=== PATIENT | male | born 1950 | race Caucasian/White ===

== ENCOUNTER → 2024-04-14 | Outpatient (CLI) | payer MEDICARE, BC, SELFPAY ==
[2024-04-14 12:32] LABS: Collection Type, Urine Clean Catch
[2024-04-14 13:04] LABS: Basophils # (Auto) 0.1 Thou/mm3 (0.0-0.2); Basophils % (Auto) 1 % (0-2.5); Eosinophils # (Auto) 0.2 Thou/mm3 (0.0-0.5); Eosinophils % (Auto) 3 % (0-10); Hemoglobin 11.7 g/dL (13.5-16.0); Immature Granulocytes % (Auto) 0 % (0-0); Immature Granulocytes Auto 0.01 Thou/mm3 (0.00-0.00); Lymphocytes # (Auto) 1.9 Thou/mm3 (1.0-4.8); Lymphocytes % (Auto) 28 % (10-50); Mean Corpuscular HGB Conc 30.8 g/dl (31.0-37.0); Mean Corpuscular Hemoglobin 25.7 pg (25.0-35.0); Mean Corpuscular Volume 83 fL (80-100); Monocytes # (Auto) 0.6 Thou/mm3 (0.0-0.8); Monocytes % (Auto) 8 % (0-12); Neutrophils % (Auto) 59 % (37-80); Nucleated Red Blood Cell % 0 /100 WBC (0); Platelet Count 237 Thou/mm3 (140-440); RDW Standard Deviation 50.5 fL (35.1-43.9); Red Blood Count 4.56 Miln/mm3 (4.50-5.90); White Blood Count 6.8 Thou/mm3 (3.8-10.6)
[2024-04-14 13:10] LABS: Bilirubin,Urine Negative (Negative); Blood,Urine Negative (Negative); Clarity,Urine Clear (Clear/Hazy); Color,Urine Yellow (Lt Yel-Yel); Culture Indicated,Urine Not Indicated; Glucose, Urine Negative (Negative); Ketones,Urine Negative (Negative); Leukocyte Esterase,Urine Negative (Negative); Nitrite,Urine Negative (Negative); PH,Urine 5.5 (5.0-7.0); Protein,Urine Trace (Neg - Trace); RBC,Urine 2 /hpf (0-3); Specific Gravity,Urine 1.022 (1.001-1.035); Squamous Epithelial Cell,Urine < 1 /hpf (0-5); Urobilinogen,Urine Negative mg/dL (0.0-1.0); WBC,Urine 2 /hpf (0-5)
[2024-04-14 13:13] LABS: Alanine Aminotransferase 13 U/L (10-49); Albumin, Serum 4.7 gm/dL (3.4-4.8); Albumin/Globulin Ratio 1.8 (1.2-2.2); Alkaline Phosphatase 111 U/L (46-116); Anion Gap 9 (7-16); Aspartate Amino Transferase 11 U/L (0-34); BUN/Creatinine Ratio 16 Ratio (12-20); Bilirubin,Total 0.4 mg/dL (0.3-1.2); Blood Urea Nitrogen 23 mg/dL (9-23); Calcium 9.7 mg/dL (8.3-10.6); Calcium (Corrected) 9.7 mg/dL (8.5-10.1); Carbon Dioxide 26.5 mMol/L (20.0-31.0); Chloride 105 mMol/L (98-107); Creatinine (Component) 1.4 mg/dL (0.6-1.3); Globulin 2.6 gm/dL (2.3-3.5); Glucose 104 mg/dL (74-106); Osmolality,Calculated 283 (275-295); Sodium 140 mMol/L (136-145); Total Protein 7.3 gm/dL (5.7-8.2); eGFR 53 See Note
[2024-04-14 13:21] LABS: Ferritin 9 ng/mL (10.5-307.3)
[2024-04-14 13:31] LABS: Iron 41 mcg/dL (65-175)
[2024-04-14 13:42] LABS: Path Review Blood Smear Sent to Pathologist
== END | disposition home or self-care (01) ==
PROVIDERS: PCP Physician Assistant; Referring Provider Physician Assistant; Visit Provider Physician Assistant
DX: D64.9 Anemia, unspecified (principal)
CPT/HCPCS: 36415; 80053; 81001; 82306; 82728; 83540; 84153; 85025

== ENCOUNTER → 2024-05-26 | Outpatient (CLI) | payer MEDICARE, BC, SELFPAY | END | disposition home or self-care (01) | LOC: SCTO 09:57 | PROVIDERS: PCP Physician Assistant; Referring Provider Radiology Therapeutic Radiology; Visit Provider Radiology Therapeutic Radiology | DX: C61 Malignant neoplasm of prostate (principal) | CPT/HCPCS: 36415; 84153 ==

== ENCOUNTER 2024-06-03 14:08 | Outpatient (RCR) | payer MEDICARE, BC, SELFPAY ==
--- NOTE | 2024-06-03 15:50 | CTCFLWUP_ITS ---
[facility] [address] [place], [place] [address] FOLLOW-UP NOTE Date: 06/03/2024 MR#: [id number] Name: SORAYA CROCKETT : 1950 Dx: C61 Malignant neoplasm of prostate Identification. Patient with history of prostate CA [place] score 6 (3+3) radiation therapy completed 07/01/2009. Patient's PSA has been noted to go up steadily from 1.31 on 03/29/2022 to 1.98 on 03/28/2023 CT scan 05/01/2023 abdomen pelvis showed tiny 2 to 3 mm left lateral periodic lymph nodes Negative for prostamegaly or osteoblastic met disease. Bone scan 05/15/2023 no suggestive of bone mets either. PSA has increased slightly to 2.40 on 05/26/2024. Spoke with patient about the steady rise in PSA and is comfortable as I am just observing it and will repeat PSA in 6 months Electronically signed by: Raphael Morales M.D. 06/03/2024 3:47 PM
== END 2024-06-22 23:59 | disposition home or self-care (01) ==
LOC: SCTC 14:08
PROVIDERS: PCP Physician Assistant; Referring Provider Physician Assistant; Visit Provider Radiology Therapeutic Radiology
DX: C61 Malignant neoplasm of prostate (principal); R97.21 Rising PSA following treatment for malignant neoplasm of prostate; Z92.3 Personal history of irradiation
CPT/HCPCS: 99213; G0463

== ENCOUNTER → 2024-06-04 | Outpatient (CLI) | payer MEDICARE, BC, SELFPAY ==
[2024-06-04 11:46] LABS: Basophils # (Auto) 0.1 Thou/mm3 (0.0-0.2); Basophils % (Auto) 1 % (0-2.5); Eosinophils # (Auto) 0.3 Thou/mm3 (0.0-0.5); Eosinophils % (Auto) 4 % (0-10); Hematocrit 39.7 % (41.0-53.0); Hemoglobin 11.8 g/dL (13.5-16.0); Immature Granulocytes % (Auto) 0 % (0-0); Immature Granulocytes Auto 0.01 Thou/mm3 (0.00-0.00); Lymphocytes % (Auto) 26 % (10-50); Mean Corpuscular HGB Conc 29.7 g/dl (31.0-37.0); Mean Corpuscular Hemoglobin 26.3 pg (25.0-35.0); Mean Corpuscular Volume 89 fL (80-100); Monocytes # (Auto) 0.7 Thou/mm3 (0.0-0.8); Monocytes % (Auto) 8 % (0-12); Neutrophils # (Auto) 4.7 Thou/mm3 (1.8-7.7); Neutrophils % (Auto) 60 % (37-80); Nucleated Red Blood Cell % 0 /100 WBC (0); Platelet Count 234 Thou/mm3 (140-440); RDW Standard Deviation 53.8 fL (35.1-43.9); Red Blood Count 4.48 Miln/mm3 (4.50-5.90); White Blood Count 7.9 Thou/mm3 (3.8-10.6)
[2024-06-04 12:13] LABS: Alanine Aminotransferase 13 U/L (10-49); Albumin, Serum 4.3 gm/dL (3.4-4.8); Albumin/Globulin Ratio 1.5 (1.2-2.2); Alkaline Phosphatase 121 U/L (46-116); Anion Gap 8 (7-16); Aspartate Amino Transferase 17 U/L (0-34); BUN/Creatinine Ratio 14 Ratio (12-20); Bilirubin,Total 0.4 mg/dL (0.3-1.2); Blood Urea Nitrogen 21 mg/dL (9-23); Calcium 9.7 mg/dL (8.3-10.6); Calcium (Corrected) 9.7 mg/dL (8.5-10.1); Carbon Dioxide 27.8 mMol/L (20.0-31.0); Chloride 106 mMol/L (98-107); Creatinine (Component) 1.5 mg/dL (0.6-1.3); Globulin 2.8 gm/dL (2.3-3.5); Glucose 102 mg/dL (74-106); Osmolality,Calculated 286 (275-295); Potassium 5.5 mMol/L (3.4-5.1); Sodium 142 mMol/L (136-145); Total Protein 7.1 gm/dL (5.7-8.2); eGFR 49 See Note
[2024-06-04 14:47] LABS: Glucose Estimated Average 114 mg/dL (80-131); Hemoglobin A1C 5.6 % Hgb (4.8-6.0)
[2024-06-04 15:23] LABS: Ferritin 14 ng/mL (10.5-307.3); Iron 26 mcg/dL (65-175)
[2024-06-04 15:26] LABS: Cholesterol 206 mg/dL (132-200); HDL Cholesterol 52 mg/dL (40-60); LDL Cholesterol,Calculated 116 mg/dL (0-130); Triglycerides 191 mg/dL (30-150)
[2024-06-04 15:59] LABS: Vitamin B12 534 pg/mL (211-911)
== END | disposition home or self-care (01) ==
LOC: COPL 10:31
PROVIDERS: PCP Physician Assistant; Referring Provider Physician Assistant; Visit Provider Physician Assistant
DX: I10 Essential (primary) hypertension (principal); D51.9 Vitamin B12 deficiency anemia, unspecified; E11.9 Type 2 diabetes mellitus without complications; D50.9 Iron deficiency anemia, unspecified; E78.5 Hyperlipidemia, unspecified
CPT/HCPCS: 36415; 80053; 80061; 82607; 82728; 83036; 83540; 85025

== ENCOUNTER → 2024-06-15 | Outpatient (CLI) | payer MEDICARE, BC, SELFPAY ==
[2024-06-15 15:00] LABS: Alanine Aminotransferase 13 U/L (10-49); Albumin/Globulin Ratio 1.7 (1.2-2.2); Alkaline Phosphatase 101 U/L (46-116); Anion Gap 9 (7-16); Aspartate Amino Transferase 15 U/L (0-34); BUN/Creatinine Ratio 17 Ratio (12-20); Bilirubin,Total 0.2 mg/dL (0.3-1.2); Blood Urea Nitrogen 24 mg/dL (9-23); Calcium 9.4 mg/dL (8.3-10.6); Calcium (Corrected) 9.4 mg/dL (8.5-10.1); Chloride 107 mMol/L (98-107); Creatinine (Component) 1.4 mg/dL (0.6-1.3); Globulin 2.4 gm/dL (2.3-3.5); Glucose 120 mg/dL (74-106); Osmolality,Calculated 288 (275-295); Potassium 4.9 mMol/L (3.4-5.1); Sodium 142 mMol/L (136-145); Total Protein 6.4 gm/dL (5.7-8.2); eGFR 53 See Note
== END | disposition home or self-care (01) ==
LOC: COPL 13:27
PROVIDERS: PCP Physician Assistant; Referring Provider Physician Assistant; Visit Provider Physician Assistant
DX: E87.5 Hyperkalemia (principal)
CPT/HCPCS: 36415; 80053

== ENCOUNTER → 2024-09-09 | Outpatient (CLI) | payer MEDICARE, BC, SELFPAY ==
[2024-09-09 09:42] LABS: Basophils # (Auto) 0.1 Thou/mm3 (0.0-0.2); Basophils % (Auto) 1 % (0-2.5); Eosinophils # (Auto) 0.6 Thou/mm3 (0.0-0.5); Eosinophils % (Auto) 6 % (0-10); Hematocrit 38.1 % (41.0-53.0); Hemoglobin 11.6 g/dL (13.5-16.0); Immature Granulocytes % (Auto) 0 % (0-0); Immature Granulocytes Auto 0.03 Thou/mm3 (0.00-0.00); Lymphocytes # (Auto) 2.3 Thou/mm3 (1.0-4.8); Lymphocytes % (Auto) 25 % (10-50); Mean Corpuscular HGB Conc 30.4 g/dl (31.0-37.0); Mean Corpuscular Volume 89 fL (80-100); Monocytes # (Auto) 0.8 Thou/mm3 (0.0-0.8); Monocytes % (Auto) 8 % (0-12); Neutrophils # (Auto) 5.3 Thou/mm3 (1.8-7.7); Neutrophils % (Auto) 59 % (37-80); Nucleated Red Blood Cell % 0 /100 WBC (0); Platelet Count 240 Thou/mm3 (140-440); RDW Standard Deviation 48.3 fL (35.1-43.9); Red Blood Count 4.29 Miln/mm3 (4.50-5.90)
[2024-09-09 09:47] LABS: Glucose Estimated Average 120 mg/dL (80-131); Hemoglobin A1C 5.8 % Hgb (4.8-6.0)
[2024-09-09 09:53] LABS: Alanine Aminotransferase 10 U/L (10-49); Albumin, Serum 4.2 gm/dL (3.4-4.8); Albumin/Globulin Ratio 1.7 (1.2-2.2); Alkaline Phosphatase 107 U/L (46-116); Anion Gap 8 (7-16); Aspartate Amino Transferase 13 U/L (0-34); BUN/Creatinine Ratio 14 Ratio (12-20); Bilirubin,Total 0.4 mg/dL (0.3-1.2); Blood Urea Nitrogen 18 mg/dL (9-23); Calcium 9.2 mg/dL (8.3-10.6); Calcium (Corrected) 9.2 mg/dL (8.5-10.1); Carbon Dioxide 27.2 mMol/L (20.0-31.0); Cardiac Risk Estimate 3.3 RATIO (4.0-6.7); Chloride 106 mMol/L (98-107); Cholesterol 178 mg/dL (132-200); Creatinine (Component) 1.3 mg/dL (0.6-1.3); Globulin 2.5 gm/dL (2.3-3.5); Glucose 107 mg/dL (74-106); HDL Cholesterol 54 mg/dL (40-60); LDL Cholesterol,Calculated 94 mg/dL (0-130); Osmolality,Calculated 283 (275-295); Potassium 4.8 mMol/L (3.4-5.1); Sodium 141 mMol/L (136-145); Total Protein 6.7 gm/dL (5.7-8.2); Triglycerides 149 mg/dL (30-150); eGFR 58 See Note
[2024-09-09 09:54] LABS: Ferritin 12 ng/mL (10.5-307.3); Iron 41 mcg/dL (65-175)
== END | disposition home or self-care (01) ==
LOC: COPL 08:41
PROVIDERS: PCP Physician Assistant; Referring Provider Physician Assistant; Visit Provider Physician Assistant
DX: D50.9 Iron deficiency anemia, unspecified (principal); E78.5 Hyperlipidemia, unspecified; I10 Essential (primary) hypertension; R73.01 Impaired fasting glucose
CPT/HCPCS: 36415; 80053; 80061; 82728; 83036; 83540; 85025

== ENCOUNTER → 2024-11-24 | Outpatient (CLI) | payer MEDICARE, BC, SELFPAY ==
[2024-11-24 13:22] LABS: Prostate Specific Antigen 3.10 ng/mL (0-4.00)
== END | disposition home or self-care (01) ==
LOC: SCTO 11-26 06:46
PROVIDERS: PCP Physician Assistant; Referring Provider Radiology Therapeutic Radiology; Visit Provider Radiology Therapeutic Radiology
DX: C61 Malignant neoplasm of prostate (principal)
CPT/HCPCS: 36415; 84153

== ENCOUNTER 2024-12-02 14:35 | Outpatient (RCR) | payer MEDICARE, BC, SELFPAY ==
--- NOTE | 2024-12-02 15:26 | CTCFLWUP_ITS ---
[facility] [address] [place], [place] [address] FOLLOW-UP NOTE Date: 12/02/2024 MR#: [id number] Name: SORAYA CROCKETT : 1950 Dx: C61 Malignant neoplasm of prostate Identification. Patient was treated for [place] score 6 prostate CA 7380 cGy completed 07/11/2009. Patient received limited Lupron injections by the urologist during time. Noted to have steady increase in his PSA over the past 3 years 04/21/2020 0.79 11/26/2023 2.00 11/24/2024. 3.10 According to [place] criteria PSA of 2 or more from shiva PSA is considered a biochemical recurrence, whether or not patient received androgen deprivation therapy. Will check PSMA PET scan and see him back in 2 months. Electronically signed by: Raphael Morales M.D. 12/02/2024 3:23 PM
== END 2024-12-22 23:59 | disposition home or self-care (01) ==
LOC: SCTC 14:35
PROVIDERS: PCP Physician Assistant; Referring Provider Physician Assistant; Visit Provider Radiology Therapeutic Radiology
DX: C61 Malignant neoplasm of prostate (principal)
CPT/HCPCS: 99213; G0463

== ENCOUNTER → 2025-01-12 | Outpatient (CLI) | payer MEDICARE, BC, SELFPAY ==
[2025-01-12 10:48] LABS: Collection Type, Urine Clean Catch
[2025-01-12 11:29] LABS: Basophils # (Auto) 0.1 Thou/mm3 (0.0-0.2); Basophils % (Auto) 1 % (0-2.5); Eosinophils # (Auto) 0.7 Thou/mm3 (0.0-0.5); Eosinophils % (Auto) 7 % (0-10); Hematocrit 30.5 % (41.0-53.0); Hemoglobin 9.2 g/dL (13.5-16.0); Immature Granulocytes Auto 0.04 Thou/mm3 (0.00-0.00); Lymphocytes # (Auto) 2.2 Thou/mm3 (1.0-4.8); Lymphocytes % (Auto) 20 % (10-50); Mean Corpuscular HGB Conc 30.2 g/dl (31.0-37.0); Mean Corpuscular Hemoglobin 24.7 pg (25.0-35.0); Mean Corpuscular Volume 82 fL (80-100); Monocytes # (Auto) 0.8 Thou/mm3 (0.0-0.8); Monocytes % (Auto) 7 % (0-12); Neutrophils # (Auto) 7.2 Thou/mm3 (1.8-7.7); Neutrophils % (Auto) 65 % (37-80); Nucleated Red Blood Cell # 0.00 Thou/mm3 (0.00-0.00); Nucleated Red Blood Cell % 0 /100 WBC (0); Platelet Count 431 Thou/mm3 (140-440); RDW Standard Deviation 48.0 fL (35.1-43.9); Red Blood Count 3.73 Miln/mm3 (4.50-5.90); White Blood Count 11.1 Thou/mm3 (3.8-10.6)
[2025-01-12 11:34] LABS: Bacteria,Urine Rare; Bilirubin,Urine Negative (Negative); Blood,Urine Negative (Negative); Clarity,Urine Clear (Clear/Hazy); Color,Urine Lt-Yellow (Lt Yel-Yel); Culture Indicated,Urine Not Indicated; Glucose, Urine Negative (Negative); Hyaline Casts,Urine < 1 /hpf (0-1); Ketones,Urine Negative (Negative); Leukocyte Esterase,Urine Negative (Negative); Nitrite,Urine Negative (Negative); PH,Urine 6.0 (5.0-7.0); Protein,Urine Trace (Neg - Trace); RBC,Urine 1 /hpf (0-3); Specific Gravity,Urine 1.017 (1.001-1.035); Squamous Epithelial Cell,Urine < 1 /hpf (0-5); Urobilinogen,Urine Negative mg/dL (0.0-1.0); WBC,Urine 1 /hpf (0-5)
[2025-01-12 11:43] LABS: Glucose Estimated Average 128 mg/dL (80-131); Hemoglobin A1C 6.1 % Hgb (4.8-6.0)
[2025-01-12 11:49] LABS: Vitamin B12 477 pg/mL (211-911); Vitamin D 25 Hydroxy Total 51.4 ng/mL (7.3-40.2)
[2025-01-12 11:50] LABS: Ferritin 100 ng/mL (10.5-307.3); Iron 15 mcg/dL (65-175)
[2025-01-12 12:00] LABS: Alanine Aminotransferase 9 U/L (10-49); Albumin, Serum 4.6 gm/dL (3.4-4.8); Albumin/Globulin Ratio 1.8 (1.2-2.2); Alkaline Phosphatase 84 U/L (46-116); Anion Gap 13 (7-16); Aspartate Amino Transferase 12 U/L (0-34); BUN/Creatinine Ratio 11 Ratio (12-20); Bilirubin,Total 0.4 mg/dL (0.3-1.2); Blood Urea Nitrogen 18 mg/dL (9-23); Calcium 9.4 mg/dL (8.3-10.6); Calcium (Corrected) 9.4 mg/dL (8.5-10.1); Carbon Dioxide 25.0 mMol/L (20.0-31.0); Cardiac Risk Estimate 4.4 RATIO (4.0-6.7); Chloride 102 mMol/L (98-107); Cholesterol 196 mg/dL (132-200); Creatinine (Component) 1.6 mg/dL (0.6-1.3); Globulin 2.6 gm/dL (2.3-3.5); Glucose 116 mg/dL (74-106); HDL Cholesterol 45 mg/dL (40-60); LDL Cholesterol,Calculated 117 mg/dL (0-130); Osmolality,Calculated 282 (275-295); Potassium 4.6 mMol/L (3.4-5.1); Sodium 140 mMol/L (136-145); Thyroid Stimulating Hormone 0.71 uIU/mL (0.55-4.78); Total Protein 7.2 gm/dL (5.7-8.2); Triglycerides 172 mg/dL (30-150); eGFR 45 See Note
== END | disposition home or self-care (01) ==
LOC: COPL 10:09
PROVIDERS: PCP Physician Assistant; Referring Provider Physician Assistant; Visit Provider Physician Assistant
DX: I10 Essential (primary) hypertension (principal); D50.9 Iron deficiency anemia, unspecified; E78.5 Hyperlipidemia, unspecified; R73.01 Impaired fasting glucose; E55.9 Vitamin D deficiency, unspecified; D51.9 Vitamin B12 deficiency anemia, unspecified; Z12.5 Encounter for screening for malignant neoplasm of prostate
CPT/HCPCS: 36415; 80053; 80061; 81001; 82306; 82607; 82728; 83036; 83540; 84153; 84443; 85025

== ENCOUNTER 2025-02-19 08:46 | Inpatient (IN) | payer MEDICARE, BC, SELFPAY ==
[2025-02-19] VITALS (11 sets, daily range): BP systolic 115–149; BP diastolic 60–90; PULSE 95–138; RESP 16–97; TEMP 36.8–39.6; O2SAT 96–100; BMI 30.4
--- NOTE | 2025-02-19 09:00 | XR_ITS ---
EXAMINATION: AP chest single view TECHNIQUE: AP upright portable chest single view Date and time: February 11, 2025, 0932 hours, comparison September 29, 2007 INDICATIONS: Right sided chest rib pain this week FINDINGS: Minor prominence left ventricle No pneumonia or pulmonary edema Severe osteopenia Ribs appear grossly intact IMPRESSION: No pneumonia or pulmonary edema
--- NOTE | 2025-02-19 09:00 | EDRME_ITS ---
Rapid Medical Screening Exam [facility] Arrival date/time: 02/19/25 08:46 75-year-old male with a history of hypertension presents to the emergency room with a chief complaint of weakness, dizziness with sudden positional changes, and right sided rib pain x 1 week I have greeted and performed a focused initial assessment of this patient. A comprehensive ED assessment and evaluation of the patient, analysis of all test results, and completion of the medical decision making process will be conducted by additional ED providers. Chief Complaint: Back Pain/Injury Vital signs: Vital Signs Temperature 98.7 F 02/19/25 08:57 Pulse Rate 112 H 02/19/25 08:57 Respiratory Rate 18 02/19/25 08:57 Blood Pressure 122/66 02/19/25 08:57 Pulse Oximetry (%) 98 02/19/25 08:57 Oxygen Delivery Method Room Air 02/19/25 08:57 Vital signs reviewed by provider: Yes Exam: Tenderness to the right rib cage with palpation. Weakness GCS of 15 alert l and oriented x 3 Clinical Impression: Anemia/electrolyte imbalance
--- NOTE | 2025-02-19 09:00 | EKG_ITS ---
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
--- NOTE | 2025-02-19 09:51 | XR_ITS ---
Examination: Abdomen sonogram, Limited Date and time of exam: February 11, 2025, 1026 hours INDICATIONS: Right upper abdominal pain beginning today Technique: Real-time beck scale transabdominal sonographic images of the upper abdomen obtained. Findings: Normal gallbladder Normal common bile duct 0.5 cm Pancreatic head 3.2 cm Liver 18.1 cm irregular contour fatty infiltration no focal liver lesions Normal hepatopetal portal venous flow Patent IVC IMPRESSION: Normal gallbladder Moderate hepatomegaly
[2025-02-19 09:56] LABS: Basophils # (Auto) 0.0 Thou/mm3 (0.0-0.2); Basophils % (Auto) 0 % (0-2.5); Eosinophils # (Auto) 0.2 Thou/mm3 (0.0-0.5); Eosinophils % (Auto) 1 % (0-10); Hematocrit 27.6 % (41.0-53.0); Immature Granulocytes Auto 0.09 Thou/mm3 (0.00-0.00); Lymphocytes # (Auto) 1.7 Thou/mm3 (1.0-4.8); Lymphocytes % (Auto) 13 % (10-50); Mean Corpuscular HGB Conc 30.1 g/dl (31.0-37.0); Mean Corpuscular Hemoglobin 23.3 pg (25.0-35.0); Mean Corpuscular Volume 78 fL (80-100); Monocytes # (Auto) 1.1 Thou/mm3 (0.0-0.8); Monocytes % (Auto) 8 % (0-12); Neutrophils # (Auto) 10.4 Thou/mm3 (1.8-7.7); Neutrophils % (Auto) 77 % (37-80); Nucleated Red Blood Cell # 0.00 Thou/mm3 (0.00-0.00); Nucleated Red Blood Cell % 0 /100 WBC (0); Platelet Count 331 Thou/mm3 (140-440); RDW Standard Deviation 48.0 fL (35.1-43.9); Red Blood Count 3.56 Miln/mm3 (4.50-5.90); White Blood Count 13.4 Thou/mm3 (3.8-10.6)
[2025-02-19 09:57] LABS: Hemoglobin 8.3 g/dL (13.5-16.0)
[2025-02-19] MEDS: RINGERS LACTATED 1000 ML 1,000 ML 999 ML IV (10:04)
[2025-02-19 10:09] LABS: INR 1.0 (0.9-1.3); Partial Thromboplastin Time 27.4 Seconds (22.0-36.0); Prothrombin Time 11.1 Seconds (9.0-12.2)
[2025-02-19 10:10] LABS: COVID-19 Antigen (In-House) Negative (Negative)
[2025-02-19 10:13] LABS: Influenza A Ag Negative; Influenza B Ag Negative
[2025-02-19 10:17] LABS: Alanine Aminotransferase 14 U/L (10-49); Albumin, Serum 4.1 gm/dL (3.4-4.8); Albumin/Globulin Ratio 1.4 (1.2-2.2); Alkaline Phosphatase 117 U/L (46-116); Anion Gap 12 (7-16); Aspartate Amino Transferase 13 U/L (0-34); BUN/Creatinine Ratio 13 Ratio (12-20); Bilirubin,Total 0.3 mg/dL (0.3-1.2); Blood Urea Nitrogen 31 mg/dL (9-23); Calcium 8.8 mg/dL (8.3-10.6); Calcium (Corrected) 8.8 mg/dL (8.5-10.1); Carbon Dioxide 23.2 mMol/L (20.0-31.0); Chloride 105 mMol/L (98-107); Creatinine (Component) 2.3 mg/dL (0.6-1.3); Estimated Creatinine Clearance 30.8 mL/min (>60); Free T4 (Free Thyroxine) 1.36 ng/dL (0.89-1.76); Globulin 3.0 gm/dL (2.3-3.5); Glucose 127 mg/dL (74-106); Lipase 42 U/L (12-53); Magnesium 2.2 mg/dL (1.6-2.6); Osmolality,Calculated 287 (275-295); Potassium 4.2 mMol/L (3.4-5.1); Sodium 140 mMol/L (136-145); Thyroid Stimulating Hormone 0.73 uIU/mL (0.55-4.78); Total Protein 7.1 gm/dL (5.7-8.2); Troponin I < 0.020 ng/mL (0.0-0.045); eGFR 29 See Note
[2025-02-19 10:21] LABS: B-Type Natriuretic Peptide 90 pg/mL (0-100)
--- NOTE | 2025-02-19 10:51 | XR_ITS ---
Examination: CT abdomen and pelvis without contrast. Coronal 3-D reconstructions. Sagittal 2-D reconstructions. Date and time of exam: February 19, 2025, 1148 hours INDICATIONS: Diagnosis prostate carcinoma 13 years ago, history small periaortic lymph nodes, onset right-sided flank pain beginning 1 month ago CTDI: vol (mGy): 8.56 DLP: (mGycm): 564 Technique: Axial images of the abdomen have been obtained, 3 mm slice thickness Intravenous contrast material has not been administered. Low dose protocols were performed. One or more of the following dose reduction techniques were used; automated exposure control, adjustment of the mA and/or KV according to patient size, use of iterative reconstruction technique. Findings: Multiple subcentimeter pulmonary nodules in both lower lung zones Trace pericardial effusion No focal liver or splenic lesion Distended gallbladder although no definite stones No pancreatic mass Perinephric stranding with moderate renal scar formation No bowel obstruction Prostate calcifications transverse prostate dimension 4.4 cm Small lymph nodes in the pericecal region with pericecal inflammatory change Severe osteopenia with chronic compressions L5 L2 IMPRESSION: Multiple subcentimeter pulmonary nodules in both lower lung zones, consider elective CT chest without contrast follow-up Distended gallbladder, recommend about a biliary sonography follow-up Perinephric stranding with moderate renal scar formation, consider urinary tract infection Pericecal inflammatory change, significant, if appendicitis is a clinical consideration, recommend repeat CT scan abdomen pelvis post intravenous contrast
[2025-02-19 12:56] LABS: Collection Type, Urine Clean Catch
[2025-02-19 13:06] LABS: Bilirubin,Urine Negative (Negative); Blood,Urine Negative (Negative); Clarity,Urine Clear (Clear/Hazy); Color,Urine Lt-Yellow (Lt Yel-Yel); Culture Indicated,Urine Not Indicated; Glucose, Urine Negative (Negative); Ketones,Urine Negative (Negative); Leukocyte Esterase,Urine Negative (Negative); Nitrite,Urine Negative (Negative); PH,Urine 5.5 (5.0-7.0); Protein,Urine 1+ (Neg - Trace); RBC,Urine 4 /hpf (0-3); Specific Gravity,Urine 1.017 (1.001-1.035); Squamous Epithelial Cell,Urine < 1 /hpf (0-5); Urobilinogen,Urine Negative mg/dL (0.0-1.0); WBC,Urine 4 /hpf (0-5)
[2025-02-19] MEDS: MORPHINE SULF INJ 4 MG/ML VIAL IVP (13:11)
[2025-02-19] MEDS: ONDANSETRON INJ 2 MG/ML INJ 2 ML 4 MG IVP (13:12)
[2025-02-19] MEDS: cefTRIAXone 2 GM in SODIUM CHLORIDE 0.9% (Popper) 50 ML IV (13:15)
--- NOTE | 2025-02-19 14:20 | EDNOTE_ITS ---
ED Back Injury Pain RME/HPI General Chief Complaint: Back Pain/Injury Stated Complaint: RIGHT FLANK PAIN Arrival date/time: 02/19/25 08:46 Limitations: no limitations RME / HPI RME / HPI Narrative: 02/19/25 08:46 75-year-old male with a history of hypertension presents to the emergency room with a chief complaint of weakness, dizziness with sudden positional changes, and right sided rib pain x 1 week I have greeted and performed a focused initial assessment of this patient. A comprehensive ED assessment and evaluation of the patient, analysis of all test results, and completion of the medical decision making process will be conducted by additional ED providers. DR. BROCK MAIN ED EVALUATION: 75 year old male with history of hypertension and prostate cancer presents to the ED for evaluation of right upper and right flank pain occurring intermittently over the last month. Described as aching in sensation, rating as mild-moderate. Accompanied by occasionally feeling weak. Denies any fevers. Denies n/v/d. Exam: Tenderness to the right rib cage with palpation. Weakness GCS of 15 alert l and oriented x 3 Impression: Anemia/electrolyte imbalance Related Data Home Medications ?Medication ?Instructions ?Recorded ?Confirmed benazepril 10 mg tablet 10 mg PO QDAY 04/16/2207/15 Previous Rx's ?Medication ?Instructions ?Recorded apixaban 5 mg (74 tabs) tablets in 5 mg PO BID #74 tab s 05/14/23 a dose pack (Eliquis DVT-PE Treat 30D Start) Allergies Allergy/AdvReac Type Severity Reaction Status Date / Time No Known Allergies Allergy Verified 02/19/25 08:48 Review of Systems Review of Systems Systems Reviewed: All systems reviewed, normal except as documented Past Medical History Past Medical History CARDIAC: Positive Hypertension GENITOURINARY: Positive Prostate Cancer OTHER HISTORY: Positive Cancer and Prostate Cancer Social History SMOKING STATUS: Never smoker ED Exam General Limitations: Present no limitations General appearance: Present alert and in no apparent distress Head Head exam: Present atraumatic Eye Eye exam: Present normal appearance, PERRL and EOMI ENT ENT exam: Present normal exam, normal oropharynx and mucous membranes moist Neck Neck exam: Present normal inspection, full ROM and trachea midline Chest Chest inspection: Present normal inspection and symmetric chest wall rise Respiratory Respiratory exam: Present normal lung sounds bilaterally Cardiovascular Cardiovascular exam: Present regular rate, normal rhythm and normal heart sounds Abdominal Exam Abdominal exam: Present soft, tenderness (right upper quadrant) and normal bowel sounds Extremities Exam Extremities exam: Present normal inspection and full ROM Back Exam Back exam: Present normal inspection and full ROM Neurological Exam Neurological exam: Present alert, oriented X3 and CN II-XII intact Psychiatric Psychiatric exam: Present normal affect and normal mood Skin Skin exam: Present warm, dry, intact and normal color Course Quality Measures none Orders Category Date Time Status COVID-19 Screening Questionnaire NOW Care 02/19/25 15:[address] Screening NOW Care 02/19/25 09:52 Active Decision to Admit X1 Care 02/19/25 15:16 Completed EKG (ED ONLY) *Do not use* NOW Care 02/19/25 09:00 Completed Insert IV NOW Care 02/19/25 09:[address] abdomen pelvis wo con Stat Exams 02/19/25 10:51 Completed EKG (ED Only) Stat Exams 02/19/25 09:00 Draft US abdomen limited Stat Exams 02/19/25 09:51 Completed XR chest 1V portable Stat Exams 02/19/25 09:00 Completed B-Type Natriuretic Peptide Stat Lab 02/19/25 09:26 Completed Blood Culture (Lab) Stat Lab 02/19/25 09:26 Received CBC Stat Lab 02/19/25 09:26 Completed COVID-19 Antigen (In-House) Stat Lab 02/19/25 09:34 Completed Comprehensive Metabolic Panel Stat Lab 02/19/25 09:26 Completed Free T4 (Free Thyroxine) Stat Lab 02/19/25 09:26 Completed Influenza A & B Rapid Panel Stat Lab 02/19/25 09:34 Completed Lipase Stat Lab 02/19/25 09:26 Completed Magnesium Stat Lab 02/19/25 09:26 Completed Partial Thromboplastin Time Stat Lab 02/19/25 09:26 Completed Prothrombin Time with INR Stat Lab 02/19/25 09:26 Completed TSH [Thyroid Stimulating Hormone] Stat Lab 02/19/25 09:26 Completed Troponin I Stat Lab 02/19/25 09:26 Completed Urinalysis, C/S if Indicated Stat Lab 02/19/25 12:26 Completed Morphine* Inj Med 02/19/25 09:51 Active 4 mg IVP Q4HR PRN Ondansetron Inj [Zofran Inj] Med 02/19/25 09:51 Discontinued 4 mg IVP X1 ONE Ringers Lactated 1000 ml [Lactated Ringers] 1,000 ml Med 02/19/25 09:52 Discontinued IV 999 mls/hr cefTRIAXone [Rocephin] 2 gm Med 02/19/25 12:08 Discontinued SODIUM CHLORIDE 0.9% (Popper) [Ns 0.9% (P)] 50 ml IV X1 Vital Signs Vital signs: Vital Signs Temperature 98.7 F 02/19/25 08:57 Pulse Rate 112 H 02/19/25 08:57 Respiratory Rate 18 02/19/25 08:57 Blood Pressure 122/66 02/19/25 08:57 Pulse Oximetry (%) 98 02/19/25 08:57 Oxygen Delivery Method Room Air 02/19/25 08:57 Pulse ox is 98% on room air which is adequate. Back Pain / Injury MDM Narrative MDM Narrative:: Nayana Rhodes am scribing for and in the presence of Dr. Brock. 75 year old male with history of hypertension and prostate cancer presents to the ED for evaluation of right upper and right flank pain occurring intermittently over the last month. Described as aching in sensation, rating as mild-moderate. Accompanied by occasionally feeling weak. Denies any fevers. Denies n/v/d. Assessment: Acute cholecystitis vs UTI vs kidney stone Plan: CT abdomen pelvis Labs Ultrasound Chest xray CT abdomen pelvis shows no definitive acute appendicitis though there is stranding surrounding the appendix. At this time possible UTI vs appendicitis. UA is pending. Surgeon Dr. Singer has evaluated the patient in the ED. Does not think this is appendicitis, requesting colonoscopy to rule out malignancy. Will admit with GI consulting. I spoke with hospitalist team for admission. Patient data External records reviewed:: [facility] previous records Clinical information provided by:: patient Social determinants that could affect healthcare access:: none Patient has the following chronic illnesses:: Hypertension, prostate cancer How is presenting disease/condition affected by chronic disease/condition?: exacerbated by Evaluation data The following diagnostics were reviewed and interpreted by me:: lab results, radiology exam(s) and EKG tracing(s) (EKG @ 09:06 AM, interpreted by me, atrial fibrillation with RVR, rate 115, borderline left axis deviation. ) Lab and/or radiology exams considered but not ordered:: None Interpretation Summary: Ordering Physician: Baldomero Sumner Date of Service: 02/19/25 Procedure(s): XR chest 1V portable Accession Number(s): [id number] cc: Baldomero Sumner; Ramiro Travis MD; Rhea Juares MD~ EXAMINATION: AP chest single view TECHNIQUE: AP upright portable chest single view Date and time: February 11, 2025, 0932 hours, comparison September 29, 2007 INDICATIONS: Right sided chest rib pain this week FINDINGS: Minor prominence left ventricle No pneumonia or pulmonary edema Severe osteopenia Ribs appear grossly intact IMPRESSION: No pneumonia or pulmonary edema Dictated By: Ramiro Travis MD Signed By: <Electronically signed by Ramiro Travis MD in OV> 02/19/25 1009 Ordering Physician: Sony Ray MD Date of Service: 02/19/25 Procedure(s): US abdomen limited Accession Number(s): [id number] cc: Sony Ray MD; Ramiro Travis MD; Rhea Juares MD~ Examination: Abdomen sonogram, Limited Date and time of exam: February 11, 2025, 1026 hours INDICATIONS: Right upper abdominal pain beginning today Technique: Real-time beck scale transabdominal sonographic images of the upper abdomen obtained. Findings: Normal gallbladder Normal common bile duct 0.5 cm Pancreatic head 3.2 cm Liver 18.1 cm irregular contour fatty infiltration no focal liver lesions Normal hepatopetal portal venous flow Patent IVC IMPRESSION: Normal gallbladder Moderate hepatomegaly Dictated By: Ramiro Travis MD Signed By: <Electronically signed by Ramiro Travis MD in OV> 02/19/25 1044 Ordering Physician: Sony Ray MD Date of Service: 02/19/25 Procedure(s): CT abdomen pelvis wo [facility] Accession Number(s): [id number] cc: Sony Ray MD; Ramiro Travis MD; Rhea Juares MD~ Examination: CT abdomen and pelvis without contrast. Coronal 3-D reconstructions. Sagittal 2-D reconstructions. Date and time of exam: February 19, 2025, 1148 hours INDICATIONS: Diagnosis prostate carcinoma 13 years ago, history small periaortic lymph nodes, onset right-sided flank pain beginning 1 month ago CTDI: vol (mGy): 8.56 DLP: (mGycm): 564 Technique: Axial images of the abdomen have been obtained, 3 mm slice thickness Intravenous contrast material has not been administered. Low dose protocols were performed. One or more of the following dose reduction techniques were used; automated exposure control, adjustment of the mA and/or KV according to patient size, use of iterative reconstruction technique. Findings: Multiple subcentimeter pulmonary nodules in both lower lung zones Trace pericardial effusion No focal liver or splenic lesion Distended gallbladder although no definite stones No pancreatic mass Perinephric stranding with moderate renal scar formation No bowel obstruction Prostate calcifications transverse prostate dimension 4.4 cm Small lymph nodes in the pericecal region with pericecal inflammatory change Severe osteopenia with chronic compressions L5 L2 IMPRESSION: Multiple subcentimeter pulmonary nodules in both lower lung zones, consider elective CT chest without contrast follow-up Distended gallbladder, recommend about a biliary sonography follow-up Perinephric stranding with moderate renal scar formation, consider urinary tract infection Pericecal inflammatory change, significant, if appendicitis is a clinical consideration, recommend repeat CT scan abdomen pelvis post intravenous contrast Dictated By: Ramiro Travis MD Signed By: <Electronically signed by Ramiro Travis MD in OV> 02/19/25 1141 Medications / Prescriptions Medications or Prescriptions considered but not ordered:: None Medication administrations:: Medication Administration History Morphine Sulfate (Morphine Sulf Inj 4 Mg/Ml Vial) 4 mg IVP Q4HR PRN PRN Reason: ABDOMINAL CRAMPING Stop: 02/24/25 09:50 Last Admin: 02/19/25 13:11 Dose: 4 mg Documented By: RAVEN Discontinued Medications Lactated Ringer's (Lactated Ringers) 1,000 mls @ 999 mls/hr IV .Q1H1M ONE Stop: 02/19/25 10:52 Last Infusion: 02/19/25 11:49 Dose: Infused Documented By: Admin: 02/19/25 10:04 Dose: 999 mls/hr Documented By: RAVEN Ceftriaxone Sodium 2 gm/ (Sodium Chloride) 50 mls @ 100 mls/hr IV X1 ONE Stop: 02/19/25 12:37 Last Infusion: 02/19/25 13:50 Dose: Infused Documented By: Admin: 02/19/25 13:15 Dose: 100 mls/hr Documented By: RAVEN Ondansetron HCl (Ondansetron Inj 2 Mg/Ml Inj 2 Ml) 4 mg IVP X1 ONE; Protocol Stop: 02/19/25 09:52 Last Admin: 02/19/25 13:12 Dose: 4 mg Documented By: RAVEN See above Consultations Consultation(s) initiated? (list below): Yes Consultation #1 (Physician, Specialty, Details): See MDM Diagnosis Most likely diagnosis given after review of the tests above:: Leukocytosis Right lower quadrant pain pericecal stranding r/o appendicits r/o enteritis r/o malignancy Admission Indicated Admission indicated?: indicated Admission Request Was there a request for admission?: No Disposition Plan Disposition Plan: Admit Discharge Plan Plan Patient Disposition: Admit Acute Care w/in Hospital Prescriptions/Referrals Prescriptions/Med Rec: No Action benazepril 10 mg tablet 10 mg PO QDAY Eliquis DVT-PE Treat 30D Start 5 mg (74 tabs) tablets,dose pack 5 mg PO BID Qty: 74 0RF Referrals: Rhea Juares MD [Primary Care Provider, Family Practice] - In 1 week Problem List Clinical Impression: Leukocytosis, Right lower quadrant pain Patient/Caregiver Discharge Instructions Print Language: Georgian Stand Alone Forms: Alecia Award Info., Patient Portal Info Letter
[2025-02-19] MEDS: PIPER/TAZO INJ 4.5 GM in SODIUM CHLORIDE 0.9% (POP) 100 ML IV ×2 (16:45→22:34)
--- NOTE | 2025-02-19 16:46 | PD.RESHP ---
Documentation for date of: 02/19/25 [facility] History of Present Illness History of present illness: Mr. Bowers is a 75-year-old male with past medical history of hypertension and prostate cancer status post radiation and chemotherapy who presented to [facility] emergency department with a chief complaint of right lower back pain. Patient also complaining of weakness dizziness with positional changes, reports that he had flu earlier this month eventually his symptoms improved however he continues to have right flank pain describes it as aching and sensation, 7/10. Patient denies any recent weight loss chest pain and shortness of breath. Patient denies any hematemesis/melena/bright red blood in stool. Patient reported that he had a [facility] ago [facility] and had no remarkable findings. ED course: ED vitals: On presentation blood pressure 122/66, heart rate 112, respiratory rate 18, temp 98.7 O2 sat 98 on room air ED labs: Significant for WBC 13.4, hemoglobin 8.3, RBC 3.56, hematocrit 27.6, MCV 78, MCH 23.3, MCHC 30.1, platelets 331, neutrophilia noted. Coags PT 11.1 INR 1.0 APTT 27.4: CMP sodium 140 potassium 4.2 chloride 105 bicarb 23.2 anion gap 12 BUN 31 creatinine 2.3 GFR 29 glucose 127 alk phos 117 troponin negative. TSH and free T4 within normal limits lipase normal. ED imaging: Chest x-ray in ER showed no pneumonia pulmonary edema, EKG read shows atrial fibrillation however P waves seen on EKG. No history of atrial fibrillation. Abdominal ultrasound shows normal gallbladder moderate hepatomegaly and CT abdomen pelvis shows multiple subcentimeter pulmonary nodules in both lung zones, distended gallbladder, perinephric stranding with moderate renal scar formation, pericecal inflammation with suspicion of appendicitis. ED treatment: Patient was given 1 L LR bolus, 4 mg morphine, Zofran 4 mg x 1 2 g ceftriaxone in ER General surgeon Dr. Singer was consulted in ED she recommends colonoscopy. Review of Systems Review of Systems Narrative Review of Systems: ROS: -CONSTITUTIONAL: Denies weight loss, fever and chills. Complains of generalized weakness -HEENT: Denies changes in vision and hearing. -RESPIRATORY: Denies SOB and cough. -CV: Denies palpitations and Chest Pain. -GI: Positive abdominal pain, denies nausea, vomiting,constipation and diarrhea. -: Denies dysuria and urinary frequency. -MSK: Denies myalgia and joint pain. -SKIN: Denies rash and pruritus. -NEUROLOGICAL: Denies headache and syncope. -PSYCHIATRIC: Denies recent changes in mood. Denies anxiety and depression. Past Medical History Past Medical History Comments PMH COMMENT: PMH: As above PSHx: Denies Allergies: No known drug and food allergies Social history: -Smoking: Denies -Alcohol Use: Denies -Illicit Drug Use: Denies -Occupation: Retired Family History: Strong family history of prostate cancer in father and brother Exam Vital Signs Temp Pulse Resp BP Pulse Ox O2 Del Method 98.3 F 95 17 115/69 99 Room Air 02/19/25 15:35 02/19/25 12:52 02/19/25 15:35 02/19/25 15:35 02/19/25 15:35 02/19/25 15:35 Narrative Exam Physical Exam General: Awake and in no acute distress. Conversational and non-toxic appearing. HEENT: Normocephalic, atraumatic, mucous membranes moist. Heart: Regular rate and rhythm, no murmurs. Lungs: Clear to auscultation with no wheezing or crackles. Abdomen: Soft, nondistended, right-sided tenderness positive bowel sounds. ?No guarding or rebound tenderness. Neurologic: Alert and oriented x3, no gross neurological deficit, and patient able to move all 4 extremities. Extremities: No edema. Skin: No rash or ecchymoses. Results: Labs 02/20/25 03:25 02/20/25 03:25 Labs: Short CBC 02/19/25 Range/Units 09:26 WBC 13.4 H (3.8-10.6) Thou/mm3 Hgb 8.3 L (13.5-16.0) g/dL Hct 27.6 L (41.0-53.0) % Plt Count 331 D (140-440) Thou/mm3 BMP 02/19/25 09:26 Sodium 140 Potassium 4.2 Chloride 105 Carbon Dioxide 23.2 BUN 31 H Creatinine 2.3 H Glucose 127 H Calcium 8.8 Cardiac Enzymes 02/19/25 Range/Units 09:26 Troponin I < 0.020 (0.0-0.045) ng/mL Liver Function 02/19/25 Range/Units 09:26 Total Bilirubin 0.3 (0.3-1.2) mg/dL AST 13 (0-34) U/L ALT 14 (10-49) U/L Alkaline Phosphatase 117 H (46-116) U/L Albumin 4.1 (3.4-4.8) gm/dL Urine 02/19/25 Range/Units 12:26 Urine Color Lt-Yellow (Lt Yel-Yel) Urine Clarity Clear (Clear/Hazy) Urine pH 5.5 (5.0-7.0) Ur Specific [place] 1.017 (1.001-1.035) Urine Protein 1+ A (Neg - Trace) Urine Glucose (UA) Negative (Negative) Quality Measures Quality Measures none Advance care planning discussed with:: patient Medications Home Medications and Allergies Home Medications ?Medication ?Instructions ?Recorded ?Confirmed ?Type benazepril 10 mg tablet 10 mg PO QDAY 04/16/22 02/19/25 History solco hc PO 1XD Hypertension 02/19/25 History Allergies Allergy/AdvReac Type Severity Reaction Status Date / Time No Known Allergies Allergy Verified 02/19/25 08:48 Visit Medications Acetaminophen (Acetaminophen 325 Mg Tablet) 650 mg PO Q6H PRN PRN Reason: Fever >100.4, Pain 1-3 Stop: 03/21/25 16:05 Hydrocodone Bitart/Acetaminophen (Hydrocodone/Apap 5/325 Tablet) 1 tab PO Q4HR PRN PRN Reason: PAIN SCALE 4-6 (Moderate Stop: 02/24/25 16:05 Heparin Sodium (Porcine) (Heparin Sod Inj 5000 Unit/Ml Vial) 5,000 unit SC Q12HR [facility] Stop: 03/05/25 20:59 Lactated Ringer's (Lactated Ringers) 1,000 mls @ 75 mls/hr IV .[id number] [facility] Stop: 02/20/25 05:34 Piperacillin Sod/Tazobactam (Sod 4.5 gm/ Sodium Chloride) 100 mls @ 200 mls/hr IV Q8HR [facility]; Protocol Stop: 02/26/25 16:14 Last Admin: 02/19/25 16:45 Dose: 200 mls/hr Morphine Sulfate (Morphine Sulf Inj 4 Mg/Ml Vial) 2 mg IVP Q6HR PRN PRN Reason: PAIN SCALE 7-10 (Severe Stop: 02/24/25 09:50 Ondansetron HCl (Ondansetron Inj 2 Mg/Ml Inj 2 Ml) 4 mg IVP Q6H PRN; Protocol PRN Reason: NAUSEA OR VOMITING Stop: 03/21/25 16:05 Pantoprazole Sodium (Pantoprazole Inj 40 Mg Vial) 40 mg IVP QDAY CATHLEEN Stop: 03/22/25 08:59 Discontinued Medications Lactated Ringer's (Lactated Ringers) 1,000 mls @ 999 mls/hr IV .Q1H1M ONE Stop: 02/19/25 10:52 Last Infusion: 02/19/25 11:49 Dose: Infused Ceftriaxone Sodium 2 gm/ (Sodium Chloride) 50 mls @ 100 mls/hr IV X1 ONE Stop: 02/19/25 12:37 Last Infusion: 02/19/25 13:50 Dose: Infused Morphine Sulfate (Morphine Sulf Inj 4 Mg/Ml Vial) 4 mg IVP Q4HR PRN PRN Reason: ABDOMINAL CRAMPING Stop: 02/24/25 09:50 Last Admin: 02/19/25 13:11 Dose: 4 mg Ondansetron HCl (Ondansetron Inj 2 Mg/Ml Inj 2 Ml) 4 mg IVP X1 ONE; Protocol Stop: 02/19/25 09:52 Last Admin: 02/19/25 13:12 Dose: 4 mg Polyethylene Glycol/Electrolytes ([place]/Nahco3/Charlie/Peg (Golytely) 4,000 Ml Btl) 4,000 ml PO X1 ONE Stop: 02/19/25 16:13 Assessment & Plan Plan Mr. Bowers is a 75-year-old male with past medical history of hypertension and prostate cancer status post radiation and chemotherapy who presented to [facility] emergency department with a chief complaint of right lower back pain. Patient admitted for MIGUEL, further workup for possible appendicitis/UTI/pyelonephritis. #Acute kidney injury versus MIGUEL on CKD Patient presented with flank pain, found to have MIGUEL, creatinine 2.3, GFR 29?likely prerenal Patient was given 1 L LR bolus, creatinine improved after - IV maintenance fluid - Follow renal panel in a.m. - Avoid nephrotoxic agent - Consider renal ultrasound in a.m. - Consider nephrology consult in a.m. #Pericecal inflammation, suspected appendicitis #Perinephric stranding, suspected UTI/pyelonephritis Complains of flank pain, CT abdomen pelvis shows perinephric stranding and pericecal inflammation. Evaluated by general surgeon Dr. Singer low suspicion of appendicitis she recommends colonoscopy - Consulted gastroenterology - GoLytely prep - Clear liquid diet - Will start IV Zosyn to cover empirically - Follow urine culture #Prostate cancer status post chemotherapy and radiation therapy Patient has history of prostate cancer follows Dr. Morales outpatient, CT shows suspected pulmonary nodules in lower lung zones -Consult oncology Dr. Morales #Hypertension History of hypertension on benazepril - Hold antihypertensives for now #Microcytic anemia Patient's hemoglobin 8.3 MCV 78, suspicion of iron deficiency - Follow iron panel - Denies any hematemesis/melena/hematochezia DVT prophylaxis: Heparin Q12 GI prophylaxis: IV Protonix Diet: Clear liquid Lines: Peripheral IV Code status: Full code Case discussed with Attending Physician Dr. Law Argueta MD Internal Medicine PGY-2 Disclaimer: This note was dictated by speech recognition. Minor errors in motor driver may be present due to voice recognition software. Attending Provider Attestation/Addendum 75 yo male with prostate cancer with hx of radiation admitted for right flank pain, MIGUEL and possible appendicitis (pericecal inflammatory findings on CT). surgery was consulted. He will receive treatment for UTI with further work up and symptom management, Discussed with housestaff, Dr. Sailaja Argueta.
[2025-02-19] MEDS: RINGERS LACTATED 1000 ML 1,000 ML 75 ML IV (17:23)
[2025-02-19 18:22] LABS: Albumin, Serum 3.6 gm/dL (3.4-4.8); Anion Gap 10 (7-16); BUN/Creatinine Ratio 13 Ratio (12-20); Blood Urea Nitrogen 25 mg/dL (9-23); Calcium 8.5 mg/dL (8.3-10.6); Calcium (Corrected) 8.8 mg/dL (8.5-10.1); Carbon Dioxide 23.7 mMol/L (20.0-31.0); Chloride 105 mMol/L (98-107); Creatinine (Component) 2.0 mg/dL (0.6-1.3); Estimated Creatinine Clearance 35.4 mL/min (>60); Glucose 129 mg/dL (74-106); Osmolality,Calculated 283 (275-295); Phosphorous 3.5 mg/dL (2.4-5.1); Potassium 4.7 mMol/L (3.4-5.1); Sodium 139 mMol/L (136-145); eGFR 34 See Note
--- NOTE | 2025-02-19 18:36 | PD.IMCONS ---
HPI Data of Consult Requesting Physician: Bora Foy MD Primary Care Provider: Rhea Juares MD Consult Narrative Reason for consult: Right-sided abdominal pain History of present illness: 75 years old male evaluated in the ER for presentation of abdominal pain and discomfort CT scan of the abdomen pelvis done without contrast showed pericecal inflammatory changes and multiple subcentimeter pulmonary nodules Patient was started on Zosyn and ceftriaxone by the ER physician as there was also perinephric stranding and subsequently admitted WBC count 13.4 hemoglobin hematocrit 8.3 and 22.6 with a platelet count of 331,000 BUN/creatinine 31 and 2.3 B12 477 Patient has a history of prostrate CA s/p radiation and chemotherapy being followed by our local oncologist Dr. Morales Patient was also found to be in atrial fibrillation on admission cc:: cc: Bora Foy MD Review of Systems Review of Systems Systems Reviewed: All systems reviewed, normal except as documented Past Medical History Surgical History OTHER SURGICAL HX: Essential hypertension Meds Home Medications and Allergies Home Medications ?Medication ?Instructions ?Recorded ?Confirmed ?Type benazepril 10 mg tablet 10 mg PO QDAY 04/16/22 02/19/25 History solco hc PO 1XD Hypertension 02/19/25 History Allergies Allergy/AdvReac Type Severity Reaction Status Date / Time No Known Allergies Allergy Verified 02/19/25 08:48 Exam Vital Signs Temp Pulse Resp BP Pulse Ox O2 Del Method 98.3 F 109 H 20 140/73 H 100 Room Air 02/19/25 15:35 02/19/25 17:35 02/19/25 17:35 02/19/25 17:35 02/19/25 17:35 02/19/25 17:35 Constitutional Comments: Chronically ill-appearing Routine Respiratory Exam Comments: Scattered rhonchi Routine Abdominal Exam Comments: Soft no rebound tenderness Results Labs 02/20/25 13:50 02/20/25 16:42 Labs: Short CBC 02/19/25 Range/Units 09:26 WBC 13.4 H (3.8-10.6) Thou/mm3 Hgb 8.3 L (13.5-16.0) g/dL Hct 27.6 L (41.0-53.0) % Plt Count 331 D (140-440) Thou/mm3 BMP 02/19/25 02/19/25 09:26 17:30 Sodium 140 139 Potassium 4.2 4.7 D Chloride 105 105 Carbon Dioxide 23.2 23.7 BUN 31 H 25 H Creatinine 2.3 H 2.0 H Glucose 127 H 129 H Calcium 8.8 8.5 Cardiac Enzymes 02/19/25 Range/Units 09:26 Troponin I < 0.020 (0.0-0.045) ng/mL Liver Function 02/19/25 02/19/25 Range/Units 09:26 17:30 Total Bilirubin 0.3 (0.3-1.2) mg/dL AST 13 (0-34) U/L ALT 14 (10-49) U/L Alkaline Phosphatase 117 H (46-116) U/L Albumin 4.1 3.6 D (3.4-4.8) gm/dL Urine 02/19/25 Range/Units 12:26 Urine Color Lt-Yellow (Lt Yel-Yel) Urine Clarity Clear (Clear/Hazy) Urine pH 5.5 (5.0-7.0) Ur Specific [place] 1.017 (1.001-1.035) Urine Protein 1+ A (Neg - Trace) Urine Glucose (UA) Negative (Negative) Assessment and Plan Additional Assessment & Plan Additional Plan: # Right-sided abdominal pain with leukocytosis and CT scan of the abdomen pelvis showing pericecal inflammatory changes Plan Conservative management with IV antibiotics and a surgical consultation I will follow the patient closely Might need a colonoscopy Other medical problems include Possible UTI because of the CT scan findings of perinephric stranding Leukocytosis New onset cardiac arrhythmias Relative hypotension Thank you very much for the opportunity to participate in the care of this patient
[2025-02-19] MEDS: HYDROcodone/APAP 5/325 TABLET 1 TAB PO ×2 (18:40→23:34)
[2025-02-19 18:50] LABS: Ferritin 156 ng/mL (10.5-307.3); Iron < 5 mcg/dL (65-175); Percent Iron Saturation 2 % (20-55); Total Iron Binding Capacity 180 mcg/dL (250-425); Unsaturated Iron Binding 175 (225-295)
--- NOTE | 2025-02-19 19:12 | PC.NURSE ---
Patient report received from Wilfred MOODY, patient is awake lying in bed endorsing that he feels cold, oral temperature is 99.3, Oral Tylenol PRN will be administer, IV fluids are infusing.
[2025-02-19] MEDS: ACETAMINOPHEN 325 MG TABLET 650 MG PO (19:41)
--- NOTE | 2025-02-19 21:01 | PC.NURSE ---
This Nurse consulted with Dr. Pacheco regarding NPO order for patient as he has pending oral medications (go lightly). Per Dr. Pacheco, continue with oral medications (go lightly). This oral medication will be started in the admission unit.
[2025-02-19] MEDS: MORPHINE SULF INJ 4 MG/ML VIAL 2 MG IVP (22:31)
[2025-02-19] MEDS: ACETAMINOPHEN IVPB 1,000 MG/100 ML VIAL 250 MG IV (22:33)
[2025-02-19] MEDS: NA SU/NAHCO3/KC/PEG (Golytely) 4,000 ML BTL 4000 ML PO (22:36)
[2025-02-19] MEDS: HEPARIN SOD INJ 5000 UNIT/ML VIAL SC (22:53)
[2025-02-19 23:32] LABS: Lactate (Lactic Acid) 2.3 mMol/L (0.4-2.0)
[2025-02-20] VITALS (59 sets, daily range): BP systolic 2–207; BP diastolic 0–100; PULSE 0–198; RESP 0–92; TEMP 33.9–38.4; O2SAT 0–98; BMI 29.6
[2025-02-20 02:28] LABS: Reflex Lactate? Y
[2025-02-20 03:49] LABS: Lactic Acid, 3 HR 2.9 mMol/L (0.4-2.0)
[2025-02-20 04:16] LABS: Basophils # (Auto) 0.0 Thou/mm3 (0.0-0.2); Basophils % (Auto) 0 % (0-2.5); Eosinophils # (Auto) 0.2 Thou/mm3 (0.0-0.5); Eosinophils % (Auto) 1 % (0-10); Hematocrit 29.7 % (41.0-53.0); Immature Granulocytes Auto 0.09 Thou/mm3 (0.00-0.00); Lymphocytes # (Auto) 0.4 Thou/mm3 (1.0-4.8); Lymphocytes % (Auto) 2 % (10-50); Mean Corpuscular HGB Conc 29.0 g/dl (31.0-37.0); Mean Corpuscular Hemoglobin 23.8 pg (25.0-35.0); Mean Corpuscular Volume 82 fL (80-100); Monocytes # (Auto) 0.2 Thou/mm3 (0.0-0.8); Monocytes % (Auto) 1 % (0-12); Neutrophils # (Auto) 15.9 Thou/mm3 (1.8-7.7); Neutrophils % (Auto) 95 % (37-80); Nucleated Red Blood Cell # 0.02 Thou/mm3 (0.00-0.00); Nucleated Red Blood Cell % 0 /100 WBC (0); Platelet Count 268 Thou/mm3 (140-440); RDW Standard Deviation 52.0 fL (35.1-43.9); Red Blood Count 3.62 Miln/mm3 (4.50-5.90); White Blood Count 16.8 Thou/mm3 (3.8-10.6)
[2025-02-20 04:22] LABS: Hemoglobin 8.6 g/dL (13.5-16.0)
[2025-02-20 04:56] LABS: Alanine Aminotransferase 15 U/L (10-49); Albumin, Serum 3.7 gm/dL (3.4-4.8); Albumin/Globulin Ratio 1.4 (1.2-2.2); Alkaline Phosphatase 182 U/L (46-116); Anion Gap 14 (7-16); Aspartate Amino Transferase 26 U/L (0-34); BUN/Creatinine Ratio 9 Ratio (12-20); Bilirubin,Total 0.9 mg/dL (0.3-1.2); Blood Urea Nitrogen 28 mg/dL (9-23); Calcium 8.7 mg/dL (8.3-10.6); Calcium (Corrected) 8.9 mg/dL (8.5-10.1); Carbon Dioxide 20.2 mMol/L (20.0-31.0); Chloride 105 mMol/L (98-107); Creatinine (Component) 3.0 mg/dL (0.6-1.3); Estimated Creatinine Clearance 23.6 mL/min (>60); Globulin 2.7 gm/dL (2.3-3.5); Glucose 79 mg/dL (74-106); Magnesium 1.8 mg/dL (1.6-2.6); Osmolality,Calculated 282 (275-295); Phosphorous 3.5 mg/dL (2.4-5.1); Potassium 4.9 mMol/L (3.4-5.1); Sodium 139 mMol/L (136-145); Total Protein 6.4 gm/dL (5.7-8.2); eGFR 21 See Note
[2025-02-20] MEDS: ACETAMINOPHEN IVPB 1,000 MG/100 ML VIAL 250 MG IV (05:46)
[2025-02-20] MEDS: PIPER/TAZO INJ 4.5 GM in SODIUM CHLORIDE 0.9% (POP) 100 ML IV ×2 (05:55→18:25)
[2025-02-20] MEDS: RINGERS LACTATED 1000 ML 1,000 ML 999 ML IV ×5 (06:06→14:25)
[2025-02-20] MEDS: MIDODRINE 5 MG TABLET 10 MG PO (06:46)
--- NOTE | 2025-02-20 06:58 | XR_ITS ---
Examination: Abdomen AP single view Technique: AP portable supine abdomen, single view Exam date and time: February 20, 2025, 0724 hours INDICATIONS: Abdominal distention today. FINDINGS: Moderate air and stool throughout the colon Mild small bowel ileus No free air Prominent osteopenia IMPRESSION: Mild small bowel ileus
--- NOTE | 2025-02-20 07:01 | XR_ITS ---
Examination: CT abdomen and pelvis without contrast. Coronal 3-D reconstructions. Sagittal 2-D reconstructions. Date and time of exam: February 20, 2025, 1028 hours INDICATIONS: Distended abdomen 4 days CTDI: vol (mGy): 10.8 DLP: (mGycm): 675 Technique: Axial images of the abdomen have been obtained, 3 mm slice thickness Intravenous contrast material has not been administered. Low dose protocols were performed. One or more of the following dose reduction techniques were used; automated exposure control, adjustment of the mA and/or KV according to patient size, use of iterative reconstruction technique. 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
[2025-02-20 07:32] LABS: Base Excess, Venous -6 (-3-3); O2 Saturation, Venous 84 % (96-97); PCO2, Venous 37 mmHg (36-56); PO2, Venous 48 mmHg (15-58); pH, Venous 7.34 (7.33-7.66)
--- NOTE | 2025-02-20 07:34 | PC.NURSE ---
At 1900 Rapid Response called during shift report ot HEIDY Carr, due to patients BP not improving with current LR bolus running. Dr. Argueta at bedside.
[2025-02-20] MEDS: RINGERS LACTATED 1000 ML 500 ML 999 ML IV (07:45)
--- NOTE | 2025-02-20 08:38 | ESCONSULT_ITS ---
HPI Data of Consult Requesting Physician: Bora Foy MD Admitting Provider: Bora Foy MD Attending Provider: Bora Foy MD Primary Care Provider: Rhea Juares MD Consult Narrative History of present illness: 75-year-old male with past medical history of hypertension and prostate cancer s/p radiation and chemotherapy was admitted to the medical floors on 10/19/2024 due to MIGUEL as well as pericecal inflammation with concern for appendicitis and perinephric stranding. Patient was initially placed on GoLytely and clear liquid diets and started on Zosyn given that patient was seen by surgery and there was low suspicion for appendicitis and they could be high suspicion for possible malignancy given the history of prostate cancer. ED course: Initially patient came in afebrile and normotensive. Initial labs were relevant for leukocytosis, low hemoglobin, and MIGUEL as well as lactic acidosis. Initial imaging included chest x-ray which showed no pneumonia or pulmonary edema, abdominal ultrasound that showed a normal gallbladder, but hepatomegaly; and abdomen CT that show perinephric stranding with renal scar summation as well as multiple pulmonary nodules on bilateral lower lungs and also it was seen that patient had pericecal inflammatory changes which could have been appendicitis. Hospital course: Patient was placed on IV fluids as well as Zosyn initially. He did spike some fevers overnight on 02/19/2025 as high as 103.2. In the morning of 02/20/2025 patient had a rapid response called due to hypotension at this time patient received 2.5 L of IV fluids and repeat lactate was ordered and repeat lactic was uptrending, but patient was still AO x 3 at this time. It was also noted in the morning patient had worsening kidney function and decreased urine output. Primary team also stated that his abdomen did look more distended than yesterday therefore a CT abdomen was also ordered at this time. Around noon time while assessing the patient at bedside patient was having worsening pain and not being able to comply with commands or following directions or responding to questions. He had a feeling of imminent at this time and patient sister was at bedside stated that he was not articulate for the past 2 hours. Patient afterwards proceeded to have bluish discoloration of his lips with O2 saturations going down to the 80s even on 15 L of nasal cannula and subsequently patient went into cardiac arrest and no pulses were present therefore CODE BLUE was called. ROSC was achieved shortly after CPR was started after 5 to 8 minutes of CPR. Patient was intubated at this time to protect his airway and given desaturations and given worsening bluish discoloration on physical exam. Patient was then transferred to the ICU for further care. ICU course: Patient was transferred to the ICU where he had to further code fluids and got ROSC with an 3 to 5 minutes again. At this time his lactic acid also up trended to 23 and his hemoglobin did drop to 6.7. Patient also had a CTA of chest abdomen pelvis with did not show any aortic dissection or any PEs. Given the worsening acidosis as well as lactic acidosis patient was decided to be placed on Tablo for which consenting was done by sisters of the patient and hemodialysis catheter was placed on the left IJ. Patient has also been requiring increased vasopressor support with phenylephrine, Levophed, and vasopressin as well as steroids. Patient will get frequent labs including BMP and ABGs every 4 hours to monitor electrolytes as well as to make changes on ventilator if required. Patient's potassium also uptrending 6.8 therefore was given hyperkalemia cocktail including calcium and insulin. Otherwise we will continue with Zosyn and vancomycin for now. Cardiology was also consulted due to increased troponins as well as some ST elevation in lead III and V3, but without any reciprocal ST depressions. cc:: cc: Bora Foy MD Review of Systems Review of Systems ROS Unobtainable: due to endotracheal tube Past Medical History Past Medical History Comments PMH COMMENT: PMH: As above PSHx: Denies Allergies: No known drug and food allergies Social history: -Smoking: Denies -Alcohol Use: Denies -Illicit Drug Use: Denies -Occupation: Retired Family History: Strong family history of prostate cancer in father and brother Exam Vital Signs Temp Pulse Resp BP Pulse Ox O2 Del Method O2 Flow Rate 99.8 F 101 H 18 80/52 L 95 Room Air 2 02/20/25 04:00 02/20/25 07:57 02/20/25 07:57 02/20/25 06:46 02/20/25 04:00 02/20/25 04:00 02/20/25 07:57 Narrative Exam Gen: intubated HEENT: Pupils reactive JSOEFINA, but Left more dilated than the Right, not icteric. External ears normal. No rhinorrhea. Moist mucous membranes. Neck: Supple, full range of motion, no observable masses, No meningeal sign. Lungs: No Respiratory distress, diminished bilateral. CV: tachycardic, no murmurs. Abdomen: Distended and tender to palpation greater on the RUQ, No rebound tenderness. MSK: No joint swelling, no redness, peripheral pulses non palpable with decreased capillary refill and pale in color, no peripheral edema. Skin: No rashes, petechiae, lesions. Neuro: Intubated and unable to assess neurological status Results Labs 02/20/25 19:55 02/20/25 18:29 Labs: Short CBC 02/19/25 02/20/25 Range/Units 09:26 03:25 WBC 13.4 H 16.8 H (3.8-10.6) Thou/mm3 Hgb 8.3 L 8.6 L (13.5-16.0) g/dL Hct 27.6 L 29.7 L (41.0-53.0) % Plt Count 331 D 268 D (140-440) Thou/mm3 BMP 02/19/25 02/19/25 02/20/25 09:26 17:30 03:25 Sodium 140 139 139 Potassium 4.2 4.7 D 4.9 Chloride 105 105 105 Carbon Dioxide 23.2 23.7 20.2 BUN 31 H 25 H 28 H Creatinine 2.3 H 2.0 H 3.0 H D Glucose 127 H 129 H 79 D Calcium 8.8 8.5 8.7 Cardiac Enzymes 02/19/25 Range/Units 09:26 Troponin I < 0.020 (0.0-0.045) ng/mL Liver Function 02/19/25 02/19/25 02/20/25 Range/Units 09:26 17:30 03:25 Total Bilirubin 0.3 0.9 D (0.3-1.2) mg/dL AST 13 26 (0-34) U/L ALT 14 15 (10-49) U/L Alkaline Phosphatase 117 H 182 H D (46-116) U/L Albumin 4.1 3.6 D 3.7 (3.4-4.8) gm/dL Urine 02/19/25 Range/Units 12:26 Urine Color Lt-Yellow (Lt Yel-Yel) Urine Clarity Clear (Clear/Hazy) Urine pH 5.5 (5.0-7.0) Ur Specific [place] 1.017 (1.001-1.035) Urine Protein 1+ A (Neg - Trace) Urine Glucose (UA) Negative (Negative) ABG Interpretation ABG results: 02/20/25 07:17 VBG pH 7.34 VBG pCO2 37 VBG pO2 48 VBG Base Excess -6 L Quality Measures Quality Measures none Advance care planning discussed with:: legal surragate Medications Home Medications and Allergies Home Medications ?Medication ?Instructions ?Recorded ?Confirmed ?Type benazepril 10 mg tablet 10 mg PO QDAY 04/16/2202/19 History solco hc PO 1XD Hypertension 02/19/25 History Allergies Allergy/AdvReac Type Severity Reaction Status Date / Time No Known Allergies Allergy Verified 02/19/25 08:48 Visit Medications Acetaminophen (Acetaminophen 325 Mg Tablet) 650 mg PO Q6H PRN PRN Reason: Fever >100.4, Pain 1-3 Stop: 03/21/25 16:05 Last Admin: 02/19/25 19:41 Dose: 650 mg Hydrocodone Bitart/Acetaminophen (Hydrocodone/Apap 5/325 Tablet) 1 tab PO Q4HR PRN PRN Reason: PAIN SCALE 4-6 (Moderate Stop: 02/24/25 16:05 Last Admin: 02/19/25 23:34 Dose: 1 tab Heparin Sodium (Porcine) (Heparin Sod Inj 5000 Unit/Ml Vial) 5,000 unit SC Q12HR CATHLEEN On Hold: 02/20/25 07:06 Stop: 03/05/25 20:59 Last Admin: 02/19/25 22:53 Dose: 5,000 unit Piperacillin Sod/Tazobactam (Sod 4.5 gm/ Sodium Chloride) 100 mls @ 200 mls/hr IV Q8HR CATHLEEN; Protocol Stop: 02/26/25 16:14 Last Admin: 02/20/25 05:55 Dose: 200 mls/hr Acetaminophen (Ofirmev Inj) 1,000 mg in 100 mls @ 250 mls/hr IV Q6HR CATHLEEN Stop: 02/20/25 12:23 Last Admin: 02/20/25 05:46 Dose: 250 mls/hr Vancomycin HCl 1,000 mg/Vancomycin HCl 750 mg/ Sodium Chloride 500 mls @ 171.429 mls/hr IV X1 ONE Stop: 02/20/25 11:24 Lactated Ringer's (Lactated Ringers) 1,000 mls @ 999 mls/hr IV .Q1H1M ONE Stop: 02/20/25 09:26 Lactated Ringer's (Lactated Ringers) 1,000 mls @ 999 mls/hr IV .Q1H1M ONE Stop: 02/20/25 09:28 Morphine Sulfate (Morphine Sulf Inj 4 Mg/Ml Vial) 2 mg IVP Q6HR PRN PRN Reason: PAIN SCALE 7-10 (Severe Stop: 02/24/25 09:50 Last Admin: 02/19/25 22:31 Dose: 2 mg Ondansetron HCl (Ondansetron Inj 2 Mg/Ml Inj 2 Ml) 4 mg IVP Q6H PRN; Protocol PRN Reason: NAUSEA OR VOMITING Stop: 03/21/25 16:05 Pantoprazole Sodium (Pantoprazole Inj 40 Mg Vial) 40 mg IVP QDAY [facility] Stop: 03/22/25 08:59 Pharmacy Consult (Vancomycin Pharmacy To Dose 1 Each Each) 1 each IV QDAY PRN PRN Reason: PROTOCOL Stop: 03/22/25 08:59 Discontinued Medications Lactated Ringer's (Lactated Ringers) 1,000 mls @ 999 mls/hr IV .Q1H1M ONE Stop: 02/19/25 10:52 Last Infusion: 02/19/25 11:49 Dose: Infused Ceftriaxone Sodium 2 gm/ (Sodium Chloride) 50 mls @ 100 mls/hr IV X1 ONE Stop: 02/19/25 12:37 Last Infusion: 02/19/25 13:50 Dose: Infused Lactated Ringer's (Lactated Ringers) 1,000 mls @ 75 mls/hr IV .[id number] CATHLEEN Stop: 02/20/25 05:34 Last Admin: 02/19/25 17:23 Dose: 75 mls/hr Lactated Ringer's (Lactated Ringers) 1,000 mls @ 999 mls/hr IV .Q1H1M ONE Stop: 02/20/25 07:02 Last Admin: 02/20/25 06:06 Dose: 999 mls/hr Lactated Ringer's (Lactated Ringers) 1,000 mls @ 999 mls/hr IV .Q1H1M ONE Stop: 02/20/25 07:45 Lactated Ringer's (Lactated Ringers) 1,000 mls @ 999 mls/hr IV .Q1H1M ONE Stop: 02/20/25 08:29 Lactated Ringer's (Lactated Ringers) 500 mls @ 999 mls/hr IV .Q31M ONE Stop: 02/20/25 08:15 Midodrine (Midodrine 5 Mg Tablet) 10 mg PO X1 ONE Stop: 02/20/25 06:39 Last Admin: 02/20/25 06:46 Dose: 10 mg Morphine Sulfate (Morphine Sulf Inj 4 Mg/Ml Vial) 4 mg IVP Q4HR PRN PRN Reason: ABDOMINAL CRAMPING Stop: 02/24/25 09:50 Last Admin: 02/19/25 13:11 Dose: 4 mg Ondansetron HCl (Ondansetron Inj 2 Mg/Ml Inj 2 Ml) 4 mg IVP X1 ONE; Protocol Stop: 02/19/25 09:52 Last Admin: 02/19/25 13:12 Dose: 4 mg Polyethylene Glycol/Electrolytes ([place]yer/Nahco3/Charlie/Peg (Golytely) 4,000 Ml Btl) 4,000 ml PO X1 ONE Stop: 02/19/25 16:13 Last Admin: 02/19/25 22:36 Dose: 4,000 ml Assessment & Plan Plan 75-year-old male with past medical history of hypertension and prostate cancer s/p radiation and chemotherapy was upgraded to the ICU after cardiac arrest. NEURO #No active disease CARDIO #Shock #Cardiac Arrest Patient went into cardiac arrest in the afternoon and ROSC was achieved three times. No clear etiology at this time, but suspicion for possible MA vs worsening acidosis in the setting of worsening kidney failure, worsening septic shock (less likely as acute decline), and less likely due to PE given CTA negative for PE and aortic dissection. EKG did showed some ST elevation on lead 3 and V3, but no reciprical ST depressions. Post cardiac arrest labs showed PH 6.99 with PCO2 46, Hgb of 6.7, bicarb 12.8, creatinine 3.3, LA 8.9, trops 0.541 Plan: Patient placed on Levo, Vasopressin, Phenylephrine, and Epinephrine drip Sodium bicarb x2 q45min Treating underlying infection Cardiology consulted, appreciate recommendations #NSTEMI Trops uptrended after cardiac arrest to 1.378 Likely 2/2 demand ischemia in setting of cardiac arrest EKG showed ST elevation on lead 3 and V3, but no reciprocal ST depressions Plan: Trend trops Echo pending Cardiology consulted, appreciate recommendations PULM #Respiratory Arrest #AHRF #Intubated and mechanically ventilated Patient had respiratory arrest and cardiac arrest PE ruled out with CTA chest Plan: Mechanically ventilated ABG q4h Continue antibiotics #Mixed acidosis Patient has a HAGMA with respiratory acidosis Bicarb initially 12.8 wit underlying respiratory acidosis Winter's formula PCO2 should be 27+/- 2 ABG showed PH of 6.99 and PCO2 46 Plan: Ventilator set at RR 30 Bicarb pushes x2 q45min #Aspiration pneumonia Chest CTA showed JOSEFINA pneumonia likely secondary to aspiration during cardiac arrest. Plan: On vanco and Zosyn Sputum cultures ordered GI #Pericecal inflammation #Concern for appendicitis? #Colitis? vs Ischemic colitis? Patient had multiple CT abd/pelvis which initially showe pericecal inflammation and concern for appendicitis and then on repeat CT showed colitis involving terminal ileum and right colon. Plan: Zosyn and Vanco General surgery consulted and no current surgical interventation as patient to unstable #Possible GI bleed? Patient's hemoglobin has been dropping and had no active signs of bleeding. Hgb 6.7 and required 2 units PRBC Patient unlikely a candidate for colonoscopy or endoscopy given instability Plan: Will follow up on AM CBC Will transfuse as necessary GI on board NEPHRO #Acute renal failure Patient's kidney function worsening since admission Cr 3.3 from baseline of 1.6 Decreased urine output Plan: TABLO q4h BMP and Mg Nephrology on board #HAGMA #Lactic acidosis AG 19 with bicarb 12.8 and LA uptrended to 23 Plan: TABLO Bicarb pushes x2 q45min Nephrology on board #Hyperkalemia Potassium 5.1---> 6.8---> 5.8 Plan: Gave calcium gluconate and insulin 5 unit with 2 amps of D50. On TABLO Will follow up on repeat labs HEME #Leukocytosis Likely in setting of infection WBC uptrending to 26.3 Plan: Treat underlying infection F/U blood cultures and urine cultures #Normocytic hypochromic anemia Hgb 6.7 after cardiac arrest could be hemodiultional vs GI blood loss Plan: 2 PRBC to be transfused follow up on repeat H/H ENDO No active diseases ID #Pyelonephritis Patient had JOSEFINA perinephric starnding on CT imaging UA clean Urine culture pending Plan: Zosyn Pending urine culture #Colitis #Appendicitis? CT imaging findings concerning for appendicitis and colitis Blood culture negative in first 24 hrs Plan: Zosyn and Vanco Follow up on blood cultures General surgery consulted, appreciate recommendations MSK #No active problems Feeding/fluids: NA, levo, Phenylephrine, Vaso, epi Analgesia: N/A Sedation: N/A Thromboprophylaxis: heparin q8hr Ulcer prophylaxis: Protonix Glycemic control: q6h Spontaneous breathing trial: N/A Bowel care: N/A Deescalation of antibiotics: Zosyn & Vancomycin Case disclosed with Attending Dr. Fady Hopkins PGY2 Disclaimer: Even though this this note was dictated by speech recognition and even though it was carefully revised there may still be minor errors in bench molder apprentice due to voice recognition software.
[2025-02-20] MEDS: Vancomycin Inj 1,000 MG, Vancomycin Inj 750 MG in SODIUM CHLORIDE 0.9% 500 ML 500 ML 171.429 MG IV (09:09)
[2025-02-20 09:39] LABS: Lactate (Lactic Acid) 3.7 mMol/L (0.4-2.0)
[2025-02-20] MEDS: MORPHINE SULF INJ 4 MG/ML VIAL 2 MG IVP (10:08)
--- NOTE | 2025-02-20 11:01 | EVENTNT_ITS ---
<Statement entered by Sailaja Argueta MD - 02/20/25 16:48> Patient was seen and examined by me personally. I have reviewed the below documentation by the team resident and agree with its findings. Plan was discussed with the attending, Dr. Geo Samano MD Internal Medicine, PGY-2 Documentation for date of: 02/20/25 Event Note Event Note: Rapid response was called for hypotension around 0700, BP 79/50, MAP 59, vital signs stable otherwise. Patient already received 1 L LR bolus. Additional 1.5 L bolus was ordered ~1 L over pressure bag, repeat lactate and VBG ordered. Case was discussed with general surgeon Dr. Singer regarding CT findings from yesterday considering patient had distended tense abdomen, unchanged finding from yesterday. Patient alert and oriented x 4, worsening renal function was noted on a.m. labs and Castañeda catheter was placed. Another rapid response was called later as blood pressure did not improve, corporate relations manager was consulted they recommended following up with general surgery and recommended additional 2.5 L LR bolus, patient's mean arterial pressure around 65. This case was discussed with my attending physician, Dr. Huber, and senior resident, Dr Argueta. Even though this this note was carefully revised there may still be minor errors in personal care home administrator due to voice recognition software. Carline Campbell DO PGY I
[2025-02-20] MEDS: MIDAZOLAM INJ 1 MG/ML VIAL 2 ML 2 MG IVP (11:53)
[2025-02-20] MEDS: ETOMIDATE INJ 2 MG/ML VIAL 10 ML 20 MG IVP (11:53)
--- NOTE | 2025-02-20 11:54 | EKG_ITS ---
[facility] Test Date: 2025-02-20 Pat Name: SORAYA CROCKETT [facility] Gender: Male Unemployment Insurance Hearing Officer: ANTONELLA : 1950 Requested By: Priscila Henriquez Order Number: [id number] Reading MD: Priscila Henriquez Measurements Intervals [place] Rate: 131 P: VT: QRS: -58 QRSD: 122 T: 76 QT: 309 QTc: 457 Interpretive Statements ATRIAL FIBRILLATION WITH RAPID VENTRICULAR RESPONSE RIGHT BUNDLE BRANCH BLOCK POSSIBLE ANTERIOR MYOCARDIAL INFARCTION , OF INDETERMINATE AGE INFERIOR MYOCARDIAL INFARCTION , OF INDETERMINATE AGE Compared to ECG 02/19/2025 09:06:04 Right bundle-branch block now present Myocardial infarct finding now present /store/S0/[id number].pdf
--- NOTE | 2025-02-20 12:00 | XR_ITS ---
EXAMINATION: AP chest single view TECHNIQUE: AP portable supine chest single view Date and time: February 20, 2025, 12:39 p.m., comparison February 19, 2025 FINDINGS: Prominent CHF Enlarged cardiac contour with vascular congestion and prominent pulmonary edema Tracheal tube tip 4.7 cm above ang Orogastric tube in the stomach Prominent osteopenia IMPRESSION: Prominent CHF Orogastric tube in the stomach Tracheal tube tip 4.7 cm above ang
[2025-02-20 12:17] LABS: Basophils # (Auto) 0.1 Thou/mm3 (0.0-0.2); Basophils % (Auto) 0 % (0-2.5); Eosinophils # (Auto) 0.3 Thou/mm3 (0.0-0.5); Eosinophils % (Auto) 1 % (0-10); Hematocrit 28.0 % (41.0-53.0); Immature Granulocytes Auto 0.42 Thou/mm3 (0.00-0.00); Lymphocytes # (Auto) 3.1 Thou/mm3 (1.0-4.8); Lymphocytes % (Auto) 12 % (10-50); Mean Corpuscular HGB Conc 27.9 g/dl (31.0-37.0); Mean Corpuscular Hemoglobin 23.3 pg (25.0-35.0); Mean Corpuscular Volume 84 fL (80-100); Monocytes # (Auto) 0.5 Thou/mm3 (0.0-0.8); Monocytes % (Auto) 2 % (0-12); Neutrophils # (Auto) 21.9 Thou/mm3 (1.8-7.7); Neutrophils % (Auto) 83 % (37-80); Nucleated Red Blood Cell # 0.06 Thou/mm3 (0.00-0.00); Nucleated Red Blood Cell % 0 /100 WBC (0); Platelet Count 267 Thou/mm3 (140-440); RDW Standard Deviation 53.8 fL (35.1-43.9); Red Blood Count 3.35 Miln/mm3 (4.50-5.90); White Blood Count 26.3 Thou/mm3 (3.8-10.6)
[2025-02-20] MEDS: MORPHINE SULF INJ 4 MG/ML VIAL 3 MG IVP (12:19)
[2025-02-20 12:20] LABS: Lactate (Lactic Acid) 8.9 mMol/L (0.4-2.0)
[2025-02-20] MEDS: ROCURONIUM INJ 10 MG/ML VIAL 10 ML 80 MG IVP (12:27)
[2025-02-20 12:37] LABS: Reflex Lactate? Y
--- NOTE | 2025-02-20 12:41 | PC.SS ---
Addendum entered by Ragini Andrade 02/20/25 14:54: Contacted ED registration Martha to update NOK contact on facesheet to reflect Elaine Hanna [phone] as NOK/PRIMARY MEDICAL SURROGATE DECISIONMAKER. Addendum entered by Ragini Andrade 02/20/25 14:47: [address] Umanzor to provide family and decisionmaker Brandy update on patient's status. Patient's son Mike Winter was contacted by decisionmamaría Nava and placed on speaker. Questions/concerns addressed by Dr. Umanzor. Family informed they may visit with patient in approximately 1hr. Addendum entered by Ragini Andrade 02/20/25 13:15: 1310 SS requested CN Jasmine inform SS when appropriate to allow family at bedside. [phone] Consulted with DINAH Devlin regarding family at bedside, at this time not appropriate to have family at bedside to active treatment of patient. Informed patient's sibling Brandy and family; they will be informed as soon as possible when they be at bedside. HS Q[place]a informed. 1243 Informed by DINAH Devlin family in need of support. Met with family, Patient's sibling Brandy Hanna [phone] is primary medical surrogate decisionmaker. Brandy is requesting to be allowed at bedside with patient. SS to consult with HS and then inform patient's sibling. Original Note: 1238 Attempted to contact patient's son Mike Winter [phone], contact was unsucessful. A message was left explaining role and requesting a return call to this tech writer. Unable to obtain information from patient at this time due to current state.
[2025-02-20 12:42] LABS: Alanine Aminotransferase 33 U/L (10-49); Albumin, Serum 3.4 gm/dL (3.4-4.8); Albumin/Globulin Ratio 1.5 (1.2-2.2); Alkaline Phosphatase 185 U/L (46-116); Anion Gap 19 (7-16); Aspartate Amino Transferase 60 U/L (0-34); BUN/Creatinine Ratio 9 Ratio (12-20); Bilirubin,Total 0.7 mg/dL (0.3-1.2); Blood Urea Nitrogen 29 mg/dL (9-23); Calcium 8.6 mg/dL (8.3-10.6); Calcium (Corrected) 9.1 mg/dL (8.5-10.1); Chloride 106 mMol/L (98-107); Creatinine (Component) 3.3 mg/dL (0.6-1.3); Estimated Creatinine Clearance 21.2 mL/min (>60); Globulin 2.2 gm/dL (2.3-3.5); Glucose 94 mg/dL (74-106); Osmolality,Calculated 281 (275-295); Phosphorous 6.4 mg/dL (2.4-5.1); Potassium 5.1 mMol/L (3.4-5.1); Sodium 138 mMol/L (136-145); Total Protein 5.6 gm/dL (5.7-8.2); eGFR 19 See Note
[2025-02-20 12:48] LABS: Carbon Dioxide 12.8 mMol/L (20.0-31.0); Hemoglobin 7.8 g/dL (13.5-16.0)
[2025-02-20 12:49] LABS: Troponin I 0.541 ng/mL (0.0-0.045)
[2025-02-20 13:04] LABS: Base Excess -19 (-3-3); HCO3 11 mEq/L (20-26); O2 Saturation 98 % (91-98); PCO2 46 mmHg (32.0-48.0); PO2 156 mmHg (83-108)
--- NOTE | 2025-02-20 13:05 | XR_ITS ---
EXAMINATION: AP chest single view TECHNIQUE: AP portable supine chest single view Date and time: February 20, 2025, 1316 hours, comparison 1230 Hours FINDINGS: Interval right internal jugular central line tip SVC satisfactory position No pneumothorax Chest film is otherwise unchanged IMPRESSION: Interval right internal jugular central line tip SVC satisfactory position, no pneumothorax
[2025-02-20 13:07] LABS: Inspired Oxygen, FIO2 100 %; pH, Arterial 6.99 (7.35-7.45)
[2025-02-20 13:08] LABS: Allen Test Not Performed; Puncture Site Arterial Line
--- NOTE | 2025-02-20 13:17 | ESOP_ITS ---
PROCEDURES: Procedure Date / Time 02/20/25 12:45 Procedural Time Out Time out performed: yes Central Line Placement Right IJ: Indication(s): shock Informed consent obtained: procedure done urgently Time out done, and the following verified: correct patient, side and site, procedure, patient position and implants and/or equipment Patient placed on monitor/pulse ox: Yes Hand Hygiene: alcohol-based hand rub Max Sterile Barrier Techniques used: cap, mask, sterile gown, sterile gloves and sterile full body drape Central line prep: Chlorhexidine scrub Ultrasound used for placement: Yes Sterile Technique if Ultrasound used, including sterile gel: yes Central line lumen inserted: triple Post procedure: sutured in place, good blood return, all ports aspirated, flushed, capped and sterile dressing applied Post procedure x-ray: tip of catheter in good position and no pneumothorax seen Patient tolerated procedure: well and no complications EBL(ml): 3 Complications: none Procedure comment: The patient was placed in Trendelenburg position. The Right neck was prepped using chlorhexidine scrub ?and draped in sterile fashion. ?Using real-time ultrasound, with sterile probe cover and sterile gel, the introducer needle was inserted into the vein under direct ultrasound visualization. Venous blood was withdrawn. The syringe was removed and a guidewire was advanced into the introducer needle. The guidewire was visualized in the appropriate vein by ultrasound. A small incision was made at the skin surface with a scalpel and the introducer needle was exchanged for a dilator over the guidewire. After appropriate dilation was obtained, the dilator was exchanged over the wire for a central venous catheter. The wire was removed and the catheter was sutured in place. A biopatch was placed at the insertion site. A sterile op-site was placed over the catheter and biopatch. The patient tolerated the procedure without any hemodynamic compromise. At time of procedure completion, all ports aspirated and flushed properly. Chest X Ray afterwards, catheter in good position.? Case disclosed with Attending Dr. Fady Hopkins PGY2 Disclaimer: Even though this this note was dictated by speech recognition and even though it was carefully revised there may still be minor errors in business systems analyst due to voice recognition software. Attending note-I was present for the entire procedure and assisted with atkinson aspects
--- NOTE | 2025-02-20 13:23 | XR_ITS ---
Examination: CTA chest, with intravenous contrast. CTA abdomen, with intravenous contrast. CTA pelvis, with intravenous contrast. 2-D sagittal and coronal reconstructions. 3-D reconstructions. Date and time of exam: February 20, 2025, 1456 hours INDICATIONS: Chest pain shortness of breath abdominal pain today CTDI vol (mgy) 58.3 DLP (MGycm) 1353 Technique: Multiple CTA images, 2.0 mm slice thickness, obtained chest, abdomen, pelvis, with the high-resolution 64 slice scanner. 100 cc Isovue 370 is administered intravenously. Sagittal and coronal 2-D reconstructions are obtained. 3-D reconstructions, angiographic images are obtained. 3-D postprocessing, including vascular maximum intensity projections. Low dose protocols were performed. One or more of the following dose reduction techniques were used; automated exposure control, adjustment of the mA and/or KV according to patient size, use of iterative reconstruction technique. Findings: Endotracheal tube tip 3 cm above ang No thoracic aortic aneurysmal dilatation or dissection Pulmonary artery segments are not enlarged. No pulmonary artery filling defects Extensive bilateral pneumonia especially at the lung bases with small bilateral pleural effusions Liver is irregular in contour with severe diffuse fatty infiltration Mild ascites Gallbladder is distended Spleen is not enlarged No pancreatic mass Nodular thickening both adrenal glands Moderate renal scarring with perinephric stranding No bowel obstruction No diverticulitis Large fat-containing inguinal hernias Moderate prostatomegaly with calcifications Urinary bladder wall is thickened, urinary bladder is contracted The appendix is not diagnostically visualized Severe osteopenia Chronic osteoporotic compression L5, fusions L1-L4 IMPRESSION: No thoracic or abdominal aortic aneurysmal dilatation Negative for pulmonary artery emboli Extensive bilateral pneumonia. Cirrhosis with severe diffuse fatty infiltration throughout the liver Mild ascites No bowel obstruction Urinary bladder wall thickening which may be urinary tract outflow obstruction secondary to prostatomegaly and/or cystitis
[2025-02-20] MEDS: Norepinephrine/D5W 8mg/250ml 8 MG/250 ML BAG 8.293 MG IV (13:25)
[2025-02-20] MEDS: SODIUM BICARB INJ 8.4% 1 mEq/ML 50 ML VIAL 50 MEQ IV ×3 (13:26→17:15)
[2025-02-20] MEDS: HYDROCORTISONE SOD SUCC INJ 100 MG 2 ML VIAL IV (13:36)
[2025-02-20] MEDS: VASOPRESSIN IN NS IVPB 20 UNIT/100 ML BAG 9 UNIT IV (13:51)
--- NOTE | 2025-02-20 13:54 | ESPR_ITS ---
Documentation for date of: 02/20/25 Subjective Subjective Interval history: This is a 75-year-old male who presented to the hospital yesterday. At that point time he was complaining of right lower back pain as well as dizziness. Imaging was performed and he was noted to have pericecal inflammation on CT. Surgery was consulted for concern of appendicitis. He was not felt to be a surgical candidate at that time admitted to the floor. He was started on antibiotics. This morning he was hypotensive and rapid response was called. He was given 2 L of LR with improvement of his blood pressure. The patient stated that he felt better than he had on arrival though still had some right upper quadrant abdominal pain. Denies any nausea or vomiting. Denies any shortness of breath. At around noon the ICU resident went to reevaluate the patient. The patient was sitting up in bed talking and then stated he felt unwell. States that he felt like he was going to and then became cyanotic and pulseless. CPR was immediately started and a CODE BLUE was called. The patient underwent perhaps 5 to 8 minutes of CPR prior to ROSC. After which the patient had agonal respirations with sats in the 80s reason for which the decision was made to intubate. He was intubated and brought over to the ICU. In the ICU he proceeded to code 2 more times. Each code was 1 rounds of CPR and 1 round of epi prior to ROSC. He was also given bicarb during the code as well as vasopressin and Solu-Medrol. Currently he is hypotensive requiring vasopressor support and is on both Levophed and vasopressin. A right IJ was placed immediately after one of the codes and the right femoral A-line was placed during the code. The right femoral A-line is a third line will need to be changed once the patient is stabilized. He has been extremely hypoxic and remains on 100% FiO2. His PEEP was increased to 10. He was given a one-time dose of rocuronium for the hypoxia and work of breathing for vent compliance. Exam Vital Signs Temp Pulse Resp BP Pulse Ox O2 Del Method O2 Flow Rate 97.2 F 92 19 95/76 90 L Nasal Cannula 2 02/20/25 12:00 02/20/25 12:21 02/20/25 12:00 02/20/25 12:00 02/20/25 12:00 02/20/25 12:00 02/20/25 12:00 FiO2 100 02/20/25 12:21 Narrative Exam [id number], pale, pasty, diaphoretic, cold, clammy, normal body habitus, unresponsive HEENT-normocephalic, atraumatic, sclera icteric, pupils equal reactive, oral mucosas hydrated, ET tube and OG tube in place Chest-expiratory wheeze auscultated bilaterally with coarse breath sounds, heart regular rhythmic, tachycardic, no murmurs auscultated, no chest lesions Abdomen-distended, apparent pain in right upper quadrant, there was no rebound or guarding present earlier today, bowel sounds absent currently Extremities-trace edema lower extremities, unable to palpate bilateral pedal pulses, radial pulses palpable, mottling throughout the lower extremities Vent AC/VC Drips Levophed Vasopressin Precedex Objective - Business Support Coordinator Labs 02/20/25 12:06 02/20/25 12:06 Labs: Laboratory Results - last 24 hr 02/19/25 02/19/25 02/20/25 17:30 23:10 03:25 WBC 16.8 H RBC 3.62 L Hgb 8.6 L Hct 29.7 L MCV 82 MCH 23.8 L MCHC 29.0 L RDW Std Deviation 52.0 H Plt Count 268 D Neut % (Auto) 95 H Lymph % (Auto) 2 L [place] % (Auto) 1 Eos % (Auto) 1 Baso % (Auto) 0 Neut # (Auto) 15.9 H Lymph # (Auto) 0.4 L [place] # (Auto) 0.2 Eos # (Auto) 0.2 Baso # (Auto) 0.0 Immature Gran # (Auto) 0.09 H Absolute Nucleated RBC 0.02 H Immature Gran % 1 H Nucleated RBC % 0 Puncture Site ABG pH ABG pCO2 ABG pO2 ABG HCO3 ABG O2 Saturation ABG Base Excess VBG pH VBG pCO2 VBG pO2 VBG O2 Sat (Lelo) VBG Base Excess FiO2 Sodium 139 139 Potassium 4.7 D 4.9 Chloride 105 105 Carbon Dioxide 23.7 20.2 Anion Gap 10 14 BUN 25 H 28 H Creatinine 2.0 H 3.0 H D Estim Creat Clear Calc 35.4 L 23.6 L eGFR 34 L 21 L BUN/Creatinine Ratio 13 9 L Glucose 129 H 79 D Calculated Osmolality 283 282 Lactic Acid 2.3 H 2.9 H Calcium 8.5 8.7 Corrected Calcium 8.8 8.9 Phosphorus 3.5 3.5 Magnesium 1.8 Iron < 5 L TIBC 180 L Iron Saturation 2 L Unsat Iron Binding 175 L Ferritin 156 Total Bilirubin 0.9 D AST 26 ALT 15 Alkaline Phosphatase 182 H D Troponin I Total Protein 6.4 Albumin 3.6 D 3.7 Globulin 2.7 Albumin/Globulin Ratio 1.4 02/20/25 02/20/25 02/20/25 07:17 09:28 12:06 WBC 26.3 H D RBC 3.35 L Hgb 7.8 L Hct 28.0 L MCV 84 MCH 23.3 L MCHC 27.9 L RDW Std Deviation 53.8 H Plt Count 267 Neut % (Auto) 83 H Lymph % (Auto) 12 [place] % (Auto) 2 Eos % (Auto) 1 Baso % (Auto) 0 Neut # (Auto) 21.9 H Lymph # (Auto) 3.1 [place] # (Auto) 0.5 Eos # (Auto) 0.3 Baso # (Auto) 0.1 Immature Gran # (Auto) 0.42 H Absolute Nucleated RBC 0.06 H Immature Gran % 2 H Nucleated RBC % 0 Puncture Site ABG pH ABG pCO2 ABG pO2 ABG HCO3 ABG O2 Saturation ABG Base Excess VBG pH 7.34 VBG pCO2 37 VBG pO2 48 VBG O2 Sat (Lelo) 84 L VBG Base Excess -6 L FiO2 Sodium 138 Potassium 5.1 Chloride 106 Carbon Dioxide 12.8 L* Anion Gap 19 H BUN 29 H Creatinine 3.3 H Estim Creat Clear Calc 21.2 L eGFR 19 L BUN/Creatinine Ratio 9 L Glucose 94 Calculated Osmolality 281 Lactic Acid 3.7 H 8.9 H* Calcium 8.6 Corrected Calcium 9.1 Phosphorus 6.4 H Magnesium Iron TIBC Iron Saturation Unsat Iron Binding Ferritin Total Bilirubin 0.7 AST 60 H ALT 33 Alkaline Phosphatase 185 H Troponin I 0.541 H* D Total Protein 5.6 L Albumin 3.4 Globulin 2.2 L Albumin/Globulin Ratio 1.5 02/20/25 12:55 WBC RBC Hgb Hct MCV MCH MCHC RDW Std Deviation Plt Count Neut % (Auto) Lymph % (Auto) [place] % (Auto) Eos % (Auto) Baso % (Auto) Neut # (Auto) Lymph # (Auto) [place] # (Auto) Eos # (Auto) Baso # (Auto) Immature Gran # (Auto) Absolute Nucleated RBC Immature Gran % Nucleated RBC % Puncture Site Arterial Line ABG pH 6.99 L* ABG pCO2 46 ABG pO2 156 H ABG HCO3 11 L ABG O2 Saturation 98 ABG Base Excess -19 L VBG pH VBG pCO2 VBG pO2 VBG O2 Sat (Lelo) VBG Base Excess FiO2 100 Sodium Potassium Chloride Carbon Dioxide Anion Gap BUN Creatinine Estim Creat Clear Calc eGFR BUN/Creatinine Ratio Glucose Calculated Osmolality Lactic Acid Calcium Corrected Calcium Phosphorus Magnesium Iron TIBC Iron Saturation Unsat Iron Binding Ferritin Total Bilirubin AST ALT Alkaline Phosphatase Troponin I Total Protein Albumin Globulin Albumin/Globulin Ratio Assessment & Plan Additional Assessment Additional Assessment: In summary this is a 75-year-old male status 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 Given his CT changes with inflammation of the bowel and white count there is strong suspicion for sepsis and a distributive etiology for his shock. This is likely multifactorial with both postarrest cardiogenic and distributive components. Continue Levophed and vasopressin, start hydrocortisone for refractory shock secondary to sepsis s/p cardiac arrest- underwent 3 separate episodes of arrest with PEA on all 3. total down time <20min and good quality chest compressions were started immediately. Troponinemia-initial tropes to come back at 0.5, EKG did not show any significant ST elevations or depressions though there was an area of questionable ST elevation in V3 but not in 2 contiguous leads. Will follow-up with a formal echocardiogram and repeat troponins if they continue to trend up will obtain cardiology eval Resp Acute hypoxic respiratory failure- currently intubated and on MV, fu on ABG and CXR Renal Mixed acidosis-both anion gap metabolic acidosis as well as a respiratory acidosis, have attempted to adjust ventilator. Patient's anion gap is secondary to his lactic acidosis in the setting of cardiac arrest and shock MIGULE-appears to have acute on chronic kidney disease. Insert Castañeda, monitor I's and O's, avoid nephrotoxins. Currently in the setting of sepsis GI Transaminitis-slight increase in patient's AST this is in the setting of shock and arrest anticipate this will continue to increase Endo stable Heme Leukocytosis-worsening likely related to patient's intra-abdominal process Anemia-slight shock from arrival however patient has received IV fluids h/o prostate ca- mult lung nodules noted, fu as outpt ID ? appendicitis- seen by surgery, on vanc/zosyn, cx pending case d/w ICU team labs, imaging, records reviewed d/w hospitalist team ~120min cc time required for evaluation, exam, ED, intervention, discussion formulation of plan of care for this critically ill patient with status postcardiac arrest at high risk of further ongoing decompensation does not include procedure time. Provider Notation Provider Notation: Although this document has been carefully reviewed, there may still be some phonetic and other typographical errors. These errors are purely grammatical due to imperfections in the software program and should not be construed in any way to compromise the substance of the patient's medical care during this visit. Thank you for the opportunity and privilege in assisting you with this patient's care and management.
[2025-02-20 13:59] LABS: Allen Test Not Performed; Base Excess -19 (-3-3); HCO3 10 mEq/L (20-26); Inspired Oxygen, FIO2 100 %; O2 Saturation 99 % (91-98); PCO2 35 mmHg (32.0-48.0); PO2 155 mmHg (83-108); Puncture Site Arterial Line
[2025-02-20 14:01] LABS: pH, Arterial 7.07 (7.35-7.45)
[2025-02-20] MEDS: Sodium Bicarb Inj 8.4% SYR 50 ML SYRINGE IV ×4 (14:12→19:00)
--- NOTE | 2025-02-20 14:23 | EVENTNT_ITS ---
<Statement entered by Sailaja Argueta MD - 02/20/25 16:53> Patient was seen and examined by me personally. I have reviewed the below documentation by the team resident and agree with its findings. Plan was discussed with the attending, Dr. Geo Samano MD Internal Medicine, PGY-2 Documentation for date of: 02/20/25 Event Note Event Note: Rapid Response was called for agitation while patient was being examined by general surgery, patient continued to remain agitated stating that he is not feeling good, shouting help me , patient stated that he was going to , during evaluation patient was noted to be pulseless, immediately chest compressions were initiated and CODE BLUE was initiated. ROSC was achieved after 5 to 8 minutes of CPR. Nurse Anesthesia Program Director team at bedside, care handed over to ICU team. This case was discussed with my attending physician, Dr. Huber, and senior resident, Dr Argueta. Even though this this note was carefully revised there may still be minor errors in fountain worker due to voice recognition software. Carline Campbell DO PGY I
[2025-02-20 14:27] LABS: Hematocrit 23.8 % (41.0-53.0)
--- NOTE | 2025-02-20 14:37 | ESOP_ITS ---
PROCEDURES: Procedure Date / Time 02/20/25 1437 Arterial Line Indication(s): frequent arterial line sampling, hypoxic resp failure, shock and inability to monitor non-invasive BP Informed consent obtained: procedure done urgently Technique used: guide wire technique Post-Procedure: line sutured into place and dry sterile dressing placed Patient tolerated procedure: well EBL(ml): 5 Complications: none Site: right and femoral Procedure comment: [place] through the procedure the patient went into PEA again. Sterility was abandoned and line was placed. Once the patient is stabilized we will remove the arterial line in place and On the other side. Intubation Indication(s): acute Resp Failure and inability to protect airway Informed consent obtained: procedure done urgently Sedative: etomidate Mg given: 20 Laryngoscope: Porsha ET tube size: 7.5 Tube secured depth (cm): 25 Tube secured location: lips Tube placement confirmation: visualized tube passing through cords, equal breath sounds bilaterally, no breath sounds over epigastrium and confirmation by capnometry Patient tolerated procedure: well and no complications Intubation complications: none
[2025-02-20 14:39] LABS: Base Excess, Venous -20 (-3-3); O2 Saturation, Venous 95 % (96-97); PCO2, Venous 35 mmHg (36-56); PO2, Venous 99 mmHg (15-58); pH, Venous 7.04 (7.33-7.66)
[2025-02-20 14:42] LABS: Lactate (Lactic Acid) 18.0 mMol/L (0.4-2.0)
[2025-02-20 14:48] LABS: Hemoglobin 6.7 g/dL (13.5-16.0)
--- NOTE | 2025-02-20 14:56 | ESPR_ITS ---
<Statement entered by Sailaja Argueta MD - 02/21/25 13:25> Patient was seen and examined at bedside. I agree on the assessment and plan on this note as documented by resident Dr Shannan LANDRY PGY1. Patient was seen and examined in the morning, had 2 rapid response was called see event note for details, eventually another rapid response was initiated after which patient had loss of pulse and CODE BLUE was initiated please see event note for details. Patient upgraded to intensive care unit after intubation, see biostatistics manager note for details. Case discussed with attending Dr. Geo Samano MD PGY-2 Documentation for date of: 02/20/25 Subjective Subjective Interval history: Patient was seen and examined at bedside. No acute events took place overnight. Rapid response was called for hypotension around 0700, BP 79/50, MAP 59, vital signs stable otherwise. Rapid Response was called for patient with persistent hypotension, which soon deteriorated to loss of pulse and activation of code blue. See below for course of action. Patient was upgraded to ICU. Exam Vital Signs Temp Pulse Resp BP Pulse Ox O2 Del Method O2 Flow Rate 97.2 F 92 19 95/76 90 L Nasal Cannula 2 02/20/25 12:00 02/20/25 12:21 02/20/25 12:00 02/20/25 12:00 02/20/25 12:00 02/20/25 12:00 02/20/25 12:00 FiO2 100 02/20/25 12:21 Narrative Exam General: Awake and in no acute distress. Conversational and non-toxic appearing. HEENT: Normocephalic, atraumatic, mucous membranes moist. Heart: Regular rate and rhythm, no murmurs. Lungs: Clear to auscultation with no wheezing or crackles. Abdomen: tense, nondistended, right-sided tenderness positive bowel sounds. ?No guarding, positive rebound tenderness. Neurologic: Alert and oriented x3, no gross neurological deficit, and patient able to move all 4 extremities. Extremities: No edema. Skin: No rash or ecchymoses. Objective Labs 02/20/25 19:55 02/20/25 18:29 Labs: Laboratory Results - last 24 hr 02/19/25 02/19/25 02/20/25 17:30 23:10 03:25 WBC 16.8 H RBC 3.62 L Hgb 8.6 L Hct 29.7 L MCV 82 MCH 23.8 L MCHC 29.0 L RDW Std Deviation 52.0 H Plt Count 268 D Neut % (Auto) 95 H Lymph % (Auto) 2 L [place] % (Auto) 1 Eos % (Auto) 1 Baso % (Auto) 0 Neut # (Auto) 15.9 H Lymph # (Auto) 0.4 L [place] # (Auto) 0.2 Eos # (Auto) 0.2 Baso # (Auto) 0.0 Immature Gran # (Auto) 0.09 H Absolute Nucleated RBC 0.02 H Immature Gran % 1 H Nucleated RBC % 0 Puncture Site ABG pH ABG pCO2 ABG pO2 ABG HCO3 ABG O2 Saturation ABG Base Excess VBG pH VBG pCO2 VBG pO2 VBG O2 Sat (L[place]) VBG Base Excess FiO2 Sodium 139 139 Potassium 4.7 D 4.9 Chloride 105 105 Carbon Dioxide 23.7 20.2 Anion Gap 10 14 BUN 25 H 28 H Creatinine 2.0 H 3.0 H D Estim Creat Clear Calc 35.4 L 23.6 L eGFR 34 L 21 L BUN/Creatinine Ratio 13 9 L Glucose 129 H 79 D Calculated Osmolality 283 282 Lactic Acid 2.3 H 2.9 H Calcium 8.5 8.7 Corrected Calcium 8.8 8.9 Phosphorus 3.5 3.5 Magnesium 1.8 Iron < 5 L TIBC 180 L Iron Saturation 2 L Unsat Iron Binding 175 L Ferritin 156 Total Bilirubin 0.9 D AST 26 ALT 15 Alkaline Phosphatase 182 H D Troponin I Total Protein 6.4 Albumin 3.6 D 3.7 Globulin 2.7 Albumin/Globulin Ratio 1.4 02/20/25 02/20/25 02/20/25 07:17 09:28 12:06 WBC 26.3 H D RBC 3.35 L Hgb 7.8 L Hct 28.0 L MCV 84 MCH 23.3 L MCHC 27.9 L RDW Std Deviation 53.8 H Plt Count 267 Neut % (Auto) 83 H Lymph % (Auto) 12 [place] % (Auto) 2 Eos % (Auto) 1 Baso % (Auto) 0 Neut # (Auto) 21.9 H Lymph # (Auto) 3.1 [place] # (Auto) 0.5 Eos # (Auto) 0.3 Baso # (Auto) 0.1 Immature Gran # (Auto) 0.42 H Absolute Nucleated RBC 0.06 H Immature Gran % 2 H Nucleated RBC % 0 Puncture Site ABG pH ABG pCO2 ABG pO2 ABG HCO3 ABG O2 Saturation ABG Base Excess VBG pH 7.34 VBG pCO2 37 VBG pO2 48 VBG O2 Sat (Lelo) 84 L VBG Base Excess -6 L FiO2 Sodium 138 Potassium 5.1 Chloride 106 Carbon Dioxide 12.8 L* Anion Gap 19 H BUN 29 H Creatinine 3.3 H Estim Creat Clear Calc 21.2 L eGFR 19 L BUN/Creatinine Ratio 9 L Glucose 94 Calculated Osmolality 281 Lactic Acid 3.7 H 8.9 H* Calcium 8.6 Corrected Calcium 9.1 Phosphorus 6.4 H Magnesium Iron TIBC Iron Saturation Unsat Iron Binding Ferritin Total Bilirubin 0.7 AST 60 H ALT 33 Alkaline Phosphatase 185 H Troponin I 0.541 H* D Total Protein 5.6 L Albumin 3.4 Globulin 2.2 L Albumin/Globulin Ratio 1.5 02/20/25 02/20/25 02/20/25 12:55 13:50 14:23 WBC RBC Hgb 6.7 L* Hct 23.8 L MCV MCH MCHC RDW Std Deviation Plt Count Neut % (Auto) Lymph % (Auto) [place] % (Auto) Eos % (Auto) Baso % (Auto) Neut # (Auto) Lymph # (Auto) [place] # (Auto) Eos # (Auto) Baso # (Auto) Immature Gran # (Auto) Absolute Nucleated RBC Immature Gran % Nucleated RBC % Puncture Site Arterial Line Arterial Line ABG pH 6.99 L* 7.07 L* ABG pCO2 46 35 D ABG pO2 156 H 155 H ABG HCO3 11 L 10 L ABG O2 Saturation 98 99 H ABG Base Excess -19 L -19 L VBG pH 7.04 L VBG pCO2 35 L VBG pO2 99 H D VBG O2 Sat (Lelo) 95 L D VBG Base Excess -20 L FiO2 100 100 Sodium Potassium Chloride Carbon Dioxide Anion Gap BUN Creatinine Estim Creat Clear Calc eGFR BUN/Creatinine Ratio Glucose Calculated Osmolality Lactic Acid 18.0 H* Calcium Corrected Calcium Phosphorus Magnesium Iron TIBC Iron Saturation Unsat Iron Binding Ferritin Total Bilirubin AST ALT Alkaline Phosphatase Troponin I Total Protein Albumin Globulin Albumin/Globulin Ratio ABG Interpretation ABG results: 11/02/20/25 02/20/25 07:17 12:55 13:50 ABG pH 6.99 L* 7.07 L* ABG pCO2 46 35 D ABG pO2 156 H 155 H ABG HCO3 11 L 10 L ABG O2 Saturation 98 99 H ABG Base Excess -19 L -19 L VBG pH 7.34 VBG pCO2 37 VBG pO2 48 VBG Base Excess -6 L 02/20/25 14:23 ABG pH ABG pCO2 ABG pO2 ABG HCO3 ABG O2 Saturation ABG Base Excess VBG pH 7.04 L VBG pCO2 35 L VBG pO2 99 H D VBG Base Excess -20 L Quality Measures Quality Measures none Advance care planning discussed with:: patient Assessment & Plan Assessment Current Active Medications: Generic Name Dose Route Start Last Admin Trade Name Freq PRN Reason Stop Dose Admin Acetaminophen 650 mg 02/19/25 16:06 02/19/25 19:41 Acetaminophen 325 Mg Tablet PO 03/21/25 16:05 650 mg On Hold: 02/20/25 09:20 Q6H PRN Administration Fever >100.4, Pain 1-3 Hydrocodone Bitart/Acetaminophen 1 tab 02/19/25 16:06 02/19/25 23:34 Hydrocodone/Apap 5/325 Tablet PO 02/24/25 16:05 1 tab Q4HR PRN Administration PAIN SCALE 4-6 (Moderate Albuterol/Ipratropium 3 ml 02/20/25 15:00 Albuterol/Ipratropium (Duoneb) Rt Haw[place] 3 Ml Nebu INH 03/22/25 14:59 Q4HRRT CATHLEEN Heparin Sodium (Porcine) 5,000 unit 02/20/25 22:00 Heparin Sod Inj 5000 Unit/Ml Vial SC 03/06/25 21:59 Q8HR CATHLEEN Hydrocortisone Sodium Succinate 50 mg 02/20/25 18:00 Hydrocortisone Sod Succ Inj 100 Mg 2 Ml Vial IV 03/22/25 17:59 Q6HR CATHLEEN Piperacillin Sod/Tazobactam 100 mls @ 200 mls/hr 02/19/25 16:15 02/20/25 05:55 Sod 4.5 gm/ Sodium Chloride IV 02/26/25 16:14 200 mls/hr Q8HR CATHLEEN Administration Protocol Norepinephrine/Dextrose 8 mg in 250 mls @ 8.293 mls/hr 02/20/25 13:27 Levophed In D5w 8mg/250ml IV 03/22/25 13:26 .Q24H PRN PER PROTOCOL Protocol 0.05 MCG/KG/MIN Vasopressin/Sodium Chloride 20 unit in 100 mls @ 9 mls/hr 02/20/25 13:34 Vasostrict/Ns Ivpb IV 03/22/25 13:33 .Q11H7M PRN PER PROTOCOL Protocol 0.03 UNIT/MIN Lactated Ringer's 1,000 mls @ 999 mls/hr 02/20/25 14:23 Lactated Ringers IV 02/20/25 15:23 .Q1H1M ONE Morphine Sulfate 4 mg 02/20/25 11:42 Morphine Sulf Inj 4 Mg/Ml Vial IVP 02/24/25 16:11 Q4HR PRN PAIN SCALE 7-10 (Severe Ondansetron HCl 4 mg 02/19/25 16:06 Ondansetron Inj 2 Mg/Ml Inj 2 Ml IVP 03/21/25 16:05 Q6H PRN NAUSEA OR VOMITING Protocol Pantoprazole Sodium 40 mg 02/20/25 09:00 02/20/25 09:03 Pantoprazole Inj 40 Mg Vial IVP 03/22/25 08:59 40 mg QDAY CATHLEEN Administration Pharmacy Consult 1 each 02/20/25 09:00 Vancomycin Pharmacy To Dose 1 Each Each IV 03/22/25 08:59 QDAY PRN PROTOCOL Plan Plan Mr. Bowers is a 75-year-old male with past medical history of hypertension and prostate cancer status post radiation and chemotherapy who presented to [facility] [place] emergency department with a chief complaint of right lower back pain. Patient admitted for MIGUEL, further workup for possible appendicitis/UTI/pyelonephritis. #Shock, distributive Rapid response was called for hypotension around 0700, BP 79/50, MAP 59, vital signs stable otherwise. Patient already received 1 L LR bolus. Additional 1.5 L bolus was ordered ~1 L over pressure bag, repeat lactate and VBG ordered. Case was discussed with general surgeon Dr. Singer regarding CT findings from yesterday considering patient had distended tense abdomen, unchanged finding from yesterday. Patient alert and oriented x 4, worsening renal function was noted on a.m. labs and Castañeda catheter was placed. -LA 8.9 -VBG pH 7.04, pCO2 35, PaO2 99, O2 sat 95% Rapid Response was called for patient with persistent hypotension, which soon deteriorated to loss of pulse and activation of code blue. - CPR performed immediately beginning with chest compressions and bag-mask ventilations with 2 breaths every 30 seconds. Crash cart was brought to the room and patient attached to AED. 18G IV line established immediately by nursing. Patient was resuscitated after about 2 minutes of CPR. - ICU team was present and agreed upgrading his care to ICU level. #Acute kidney injury versus MIGUEL on CKD Patient presented with flank pain, found to have MIGUEL, creatinine 2.3, GFR 29?likely prerenal Patient was given 1 L LR bolus, creatinine improved after - IV maintenance fluid - Follow renal panel in a.m. - Avoid nephrotoxic agent - Consider renal ultrasound in a.m. - Consider nephrology consult in a.m. #Pericecal inflammation, suspected appendicitis #Perinephric stranding, suspected UTI/pyelonephritis Complains of flank pain, CT abdomen pelvis shows perinephric stranding and pericecal inflammation. Evaluated by general surgeon Dr. Singer low suspicion of appendicitis she recommends colonoscopy - Consulted gastroenterology - GoLytely prep - Clear liquid diet - Will start IV Zosyn to cover empirically - Follow urine culture #Prostate cancer status post chemotherapy and radiation therapy Patient has history of prostate cancer follows Dr. Morales outpatient, CT shows suspected pulmonary nodules in lower lung zones -Consult oncology Dr. Morales #Hypertension History of hypertension on benazepril - Hold antihypertensives for now #Microcytic anemia Patient's hemoglobin 8.3 MCV 78, suspicion of iron deficiency - Follow iron panel - Denies any hematemesis/melena/hematochezia DVT prophylaxis: Heparin Q12 GI prophylaxis: IV Protonix Diet: Clear liquid Lines: Peripheral IV Code status: Full code This case was discussed with my attending physician, Dr. Huber, and senior resident, Dr Argueta. Even though this this note was carefully revised there may still be minor errors in body mechanic due to voice recognition software. Carline Campbell DO PGY I Attending Provider Attestation/Addendum I have discussed and was present for the essential components of the history, physical examination, diagnosis, and treatment plan with the resident. I agree with the patient's care as documented by the resident and amended herein by me. Mike Huber DO. Although this document has been carefully reviewed, there may still be some phonetic and other typographical errors. These errors are purely grammatical due to imperfections in the software program and should not be construed in any way to compromise the substance of the patient's medical care during this visit.
[2025-02-20 15:11] LABS: Reflex Lactate? Y
[2025-02-20] MEDS: ALBUTEROL/IPRATROPIUM (Duoneb) RT SOL 3 ML NEBU INH (15:16)
[2025-02-20 15:22] LABS: Troponin I 1.378 ng/mL (0.0-0.045)
[2025-02-20] MEDS: Norepinephrine/D5W 8mg/250ml 8 MG/250 ML BAG 199.033 MG IV (16:01)
[2025-02-20 16:05] LABS: Lactic Acid, 3 HR 18.0 mMol/L (0.4-2.0)
--- NOTE | 2025-02-20 16:12 | XR_ITS ---
EXAMINATION: AP chest single view TECHNIQUE: AP portable supine chest single view Date and time: February 20, 2025, 1622 hours, comparison February 20, 2025 INDICATIONS: Post dialysis catheter insertion FINDINGS: Prominent heart failure Enlarged cardiac contour with vascular congestion and perihilar edema Endotracheal tube remains position satisfactory above the ang Right internal jugular central line tip SVC satisfactory position Left internal jugular temporary dialysis catheter tip satisfactory position Orogastric tube in the stomach IMPRESSION: Interval insertion of left internal jugular temporary dialysis catheter, tip in satisfactory position, no pneumothorax
--- NOTE | 2025-02-20 16:47 | PD.SURCONS ---
HPI Consult details Consult date: 02/19/25 History of present illness: 75M with HTN, prostate CA s/p chemoradiation who presented 02/19 with dizziness and R flank pain. Pt reports he began having flu symptoms a few weeks ago which lasted for a week, and then after those symptoms resolved he began having R flank pain associated with episodes of dizziness. He denies any history of similar symptoms. In ER pt underwent CT AP without contrast which indicated mild cecal inflammation but there were no other acute findings and IV contrast was avoided due to MIGUEL. Given anemia and history of incomplete colonoscopy pt is planned for admission for inpatient colonoscopy PMH: HTN, prostate CA PSHx: None Meds: No antiplt or anticoagulation Allergies: NKDA Family hx: No known CRC Review of Systems Review of Systems ROS Unobtainable: All systems reviewed & no additional complaints except as documented Meds Home Medications and Allergies Home Medications ?Medication ?Instructions ?Recorded ?Confirmed ?Type benazepril 10 mg tablet 10 mg PO QDAY 04/16/22 02/19/25 History solco hc PO 1XD Hypertension 02/19/25 History Allergies Allergy/AdvReac Type Severity Reaction Status Date / Time No Known Allergies Allergy Verified 02/19/25 08:48 Exam Vital Signs Temp Pulse Resp BP Pulse Ox O2 Del Method O2 Flow Rate 97.2 F 121 H 30 H 71/47 L 0 L Nasal Cannula 2 02/20/25 12:00 02/20/25 16:30 02/20/25 15:16 02/20/25 16:30 02/20/25 13:30 02/20/25 12:00 02/20/25 12:00 FiO2 85 02/20/25 15:16 Constitutional Constitutional: no acute distress Routine Respiratory Exam Respiratory: Present no resp distress Routine Abdominal Exam Abdominal: Present soft and tenderness (mild RLQ tenderness); Absent distended, rebound or guarding Results Results: Laboratory Laboratory results: results reviewed Results: Imaging CT scan - abdomen: report reviewed and image reviewed Assessment & Plan Plan 75M with HTN, history of prostate CA s/p chemoradiation presenting with dizziness and R flank pain, with findings of anemia. As pt has never had a full colonoscopy and is symptomatic from his anemia it would be prudent to pursue inpatient evaluation
--- NOTE | 2025-02-20 16:50 | ESPR_ITS ---
Documentation for date of: 02/20/25 Subjective Subjective Brief History: 75M with HTN, prostate CA s/p chemoradiation who presented 02/19 with dizziness and R flank pain. Pt reports he began having flu symptoms a few weeks ago which lasted for a week, and then after those symptoms resolved he began having R flank pain associated with episodes of dizziness. He denies any history of similar symptoms. In ER pt underwent CT AP without contrast which indicated mild cecal inflammation but there were no other acute findings and IV contrast was avoided due to MIGUEL. Given anemia and history of incomplete colonoscopy pt is planned for admission for inpatient colonoscopy PMH: HTN, prostate CA PSHx: None Meds: No antiplt or anticoagulation Allergies: NKDA Family hx: No known CRC Narrative: Overnight pt had Tmax 103.2 and this am had an FIXED WING PILOT for hypotension, later had code blue x3 with ROSC and is now in ICU on two pressors Exam Vital Signs Temp Pulse Resp BP Pulse Ox O2 Del Method O2 Flow Rate 97.2 F 121 H 30 H 71/47 L 0 L Nasal Cannula 2 02/20/25 12:00 02/20/25 16:30 02/20/25 15:16 02/20/25 16:30 02/20/25 13:30 02/20/25 12:00 02/20/25 12:00 FiO2 85 02/20/25 15:16 Constitutional Comments: sedated, ashen appearing Routine Respiratory Exam Respiratory: Present no resp distress Routine Abdominal Exam Abdominal: Present soft; Absent distended Results Results: Laboratory Laboratory results: results reviewed Results: Imaging CT scan - abdomen: report reviewed and image reviewed Assessment & Plan Plan 75M with HTN, history of prostate CA s/p chemoradiation presenting with dizziness and R flank pain, with findings of anemia, admitted for colonoscopic evaluation but unfortunately course was complicated by cardiac arrest with unclear etiology CTA reviewed, no intraabdominal findings that would explain this significant change in hemodynamics No surgical intervention warranted, please reconsult as needed
--- NOTE | 2025-02-20 16:55 | PD.NEPHCONS ---
History of Present Illness Data of Consult Consult date: 02/20/25 Requesting Physician: Bora Foy MD Primary Care Provider: Rhea Juares MD Consult Narrative Reason for consult: MIGUEL, Metabolic acidosis History of present illness: Chart review done as patient is on ventilator. Got all the records from talking to Dr. Shrestha and ICU team. Mr. Winter is a 75-year-old gentleman with past medical history of hypertension and prostate cancer status post radiation and chemotherapy (under Dr. Morales, [facility]) presented to the emergency department with right low back pain associated with dizziness, weakness. No recent weight change, no chest pain no shortness of breath. No hematemesis, no melena or blood in the stools. In the ED patient was noted to have a blood pressure 122/66, heart rate 112, hemoglobin 8.3, WBC 13.4, Sodium 140, potassium 4.2, bicarbonate 23.2, BUN 31, creatinine 2.3. Chest x-ray showed no pneumonia. EKG showed tachycardia. Abdominal ultrasound showed normal gallbladder, hepatomegaly. CT abdomen showed lung nodules and distended gallbladder with perinephric stranding and pericecal inflammation with a questionable appendicitis suspicion. In the ED patient was given IV fluids antibiotics and general surgery was consulted. General surgeon recommended inpatient colonoscopy as patient was also anemic with no active bleeding. Patient apparently had anemia for more than a year. During hospital course-patient noted to have worsening blood pressure, fevers and hypoxic respiratory failure. Patient had a CODE BLUE this morning and subsequently another 2 cardiac arrest in ICU. Intubated and on pressors. Since this morning his urine output started to trend down and patient became more and more acidotic. CT chest abdomen and pelvis with contrast showed no dissection or PE. ICU consulted renal for need for emergency dialysis. Owing to his hemodynamic instability and being on pressors decided to proceed with CRRT. Vas-Cath will be placed by ICU team. cc:: cc: Bora Foy MD Review of Systems Review of Systems ROS Unobtainable: due to endotracheal tube Past Medical History Past Medical History CARDIAC: Positive Hypertension; Negative Cardiac Disorders or Congestive Heart Failure RESPIRATORY: Negative Chronic Obstructive Pulmonary Disease (COPD) GENITOURINARY: Positive Prostate Cancer; Negative Renal Disease ENDOCRINE: Negative Diabetes Mellitus Type 1 or Diabetes Mellitus Type 2 HEMATOLOGIC: Negative Sickle Cell Disease OTHER HISTORY: Positive Cancer and Prostate Cancer Surgical History OTHER SURGICAL HX: Essential hypertension Social History SMOKING STATUS: Never smoker Past Medical History Comments PMH COMMENT: PMH: As above PSHx: Denies Allergies: No known drug and food allergies Social history: -Smoking: Denies -Alcohol Use: Denies -Illicit Drug Use: Denies -Occupation: Retired Family History: Strong family history of prostate cancer in father and brother Meds Home Medications and Allergies Home Medications ?Medication ?Instructions ?Recorded ?Confirmed ?Type benazepril 10 mg tablet 10 mg PO QDAY 04/16/22 02/19/25 History solco hc PO 1XD Hypertension 02/19/25 History Allergies Allergy/AdvReac Type Severity Reaction Status Date / Time No Known Allergies Allergy Verified 02/19/25 08:48 Exam Vital Signs Temp Pulse Resp BP Pulse Ox O2 Del Method O2 Flow Rate 33.9 C L 0 L 30 H 79/35 L 74 L Nasal Cannula 3 02/20/25 19:42 02/20/25 21:00 02/20/25 19:42 02/20/25 20:21 02/20/25 19:45 02/20/25 12:00 02/20/25 14:00 FiO2 85 02/20/25 19:42 Narrative Exam GENERAL APPEARANCE: Intubated, sedated CARDIOVASCULAR: Heart regular, no murmurs, tachycardia LUNGS/CHEST: Chest clear to auscultation. No rales, rhonchi, wheezing ABDOMEN: Minimal distention noted EXTREMITIES: No edema, clubbing or cyanosis. SKIN: Skin exam normal without any rashes MUSCULOSKELETAL: In bed NEUROLOGICAL : Intubated, sedated Results Labs 02/20/25 19:55 02/20/25 18:29 Labs: Short CBC 02/20/25 02/20/25 02/20/25 Range/Units 19:55 19:55 19:55 WBC 18.0 H D (3.8-10.6) Thou/mm3 Hgb Cancelled 5.1 L* D Hct Cancelled 18.2 L* Plt Count 100 L D (140-440) Thou/mm3 BMP 02/20/25 02/20/25 16:42 18:29 Sodium 140 140 Potassium 6.8 H* D 5.8 H D Chloride 103 101 Carbon Dioxide < 10.0 L* 11.3 L* BUN 34 H 29 H Creatinine 3.7 H 2.9 H D Glucose 107 H 222 H D Calcium 7.9 L 7.9 L Cardiac Enzymes 02/20/25 Range/Units 18:36 Total Creatine Kinase 317 H (34-171) U/L Liver Function 02/20/25 Range/Units 18:29 Albumin 2.7 L D (3.4-4.8) gm/dL ABG Interpretation ABG results: 02/20/25 02/20/25 02/20/25 07:17 12:55 13:50 ABG pH 6.99 L* 7.07 L* ABG pCO2 46 35 D ABG pO2 156 H 155 H ABG HCO3 11 L 10 L ABG O2 Saturation 98 99 H ABG Base Excess -19 L -19 L VBG pH 7.34 VBG pCO2 37 VBG pO2 48 VBG Base Excess -6 L 02/20/25 02/20/25 14:23 18:40 ABG pH 7.07 L* ABG pCO2 31 L ABG pO2 114 H D ABG HCO3 9 L* ABG O2 Saturation 97 ABG Base Excess -20 L VBG pH 7.04 L VBG pCO2 35 L VBG pO2 99 H D VBG Base Excess -20 L Assessment & Plan Additional Assessment & Plan Additional Plan: #Acute kidney injury -most likely related to ischemic ATN. Patient with worsening renal function and decreased urinary output. # Intractable metabolic acidosis secondary to MIGUEL/lactic acidosis # Electrolyte imbalance- # Hypoxic respiratory failure # Severe hypotension-sepsis rule out Will proceed with CRRT due to hemodynamic instability. Family requesting all aggressive measures Vas-Cath will be placed by ICU team CRRT for 24 hours QB 150-200 Daily 100 Sodium 138 Potassium 2K/3K bath Bicarbonate 40 3.5 calcium UF none No heparin Citrasate Renal panel, magnesium every 6 hours #Pericecal inflammation, suspected appendicitis #Perinephric stranding, suspected UTI/pyelonephritis # Anemia Patient seen by general surgery Dr. Singer low suspicion of appendicitis she recommends colonoscopy Patient seen by Dr. Prieto-once stable needs scope Blood transfusion ordered by ICU team #Prostate cancer status post chemotherapy and radiation therapy Patient has history of prostate cancer follows Dr. Morales outpatient, CT shows suspected pulmonary nodules in lower lung zones -Consult oncology Dr. Morales Prognosis remains guarded. Care discussed with ICU team. Thank you Dr. Shrestha for allowing me to participate in the care of MrSimón Winter
[2025-02-20 17:09] LABS: Lactate (Lactic Acid) 23.0 mMol/L (0.4-2.0)
--- NOTE | 2025-02-20 17:17 | ESOP_ITS ---
PROCEDURES: Procedure Date / Time 02/20/25 15:54 Procedural Time Out Time out performed: yes Central Line Placement Left IJ: Indication(s): shock and other (need for HD) Informed consent obtained: obtained from surrogate decision maker Time out done, and the following verified: correct patient, side and site, procedure, patient position and implants and/or equipment Patient placed on monitor/pulse ox: Yes Hand Hygiene: alcohol-based hand rub Max Sterile Barrier Techniques used: cap, mask, sterile gown, sterile gloves and sterile full body drape Central line prep: Chlorhexidine scrub Ultrasound used for placement: Yes Sterile Technique if Ultrasound used, including sterile gel: yes Central line lumen inserted: triple (tri flow ) Post procedure: sutured in place, good blood return, all ports aspirated, flushed, capped and sterile dressing applied Post procedure x-ray: tip of catheter in good position and no pneumothorax seen Patient tolerated procedure: well and no complications EBL(ml): 5 Complications: none Procedure comment: The patient was placed in Trendelenburg position. The Left neck was prepped using chlorhexidine scrub ?and draped in sterile fashion. ?Using real-time ultrasound, with sterile probe cover and sterile gel, the introducer needle was inserted into the vein under direct ultrasound visualization. Venous blood was withdrawn. The syringe was removed and a guidewire was advanced into the introducer needle. The guidewire was visualized in the appropriate vein by ultrasound. A small incision was made at the skin surface with a scalpel and the introducer needle was exchanged for a dilator over the guidewire. After appropriate dilation was obtained, the dilator was exchanged over the wire for a central venous catheter. The wire was removed and the catheter was sutured in place. A biopatch was placed at the insertion site. A sterile op-site was placed over the catheter and biopatch. The patient tolerated the procedure without any hemodynamic compromise. At time of procedure completion, all ports aspirated and flushed properly. Chest X Ray afterwards, catheter in good position.? Case disclosed with Attending Dr. Fady Hopkins PGY2 Disclaimer: Even though this this note was dictated by speech recognition and even though it was carefully revised there may still be minor errors in community development planner due to voice recognition software.
[2025-02-20 17:27] LABS: BUN/Creatinine Ratio 9 Ratio (12-20); Blood Urea Nitrogen 34 mg/dL (9-23); Calcium 7.9 mg/dL (8.3-10.6); Chloride 103 mMol/L (98-107); Creatinine (Component) 3.7 mg/dL (0.6-1.3); Estimated Creatinine Clearance 18.9 mL/min (>60); Glucose 107 mg/dL (74-106); Osmolality,Calculated 287 (275-295); Sodium 140 mMol/L (136-145); eGFR 16 See Note
[2025-02-20] MEDS: Norepinephrine/NS 16mg/250ml 16 MG/250 ML BAG 124.395 MG IV (17:29)
[2025-02-20 17:35] LABS: Anion Gap 27 (7-16)
[2025-02-20 17:36] LABS: Carbon Dioxide < 10.0 mMol/L (20.0-31.0); Potassium 6.8 mMol/L (3.4-5.1)
[2025-02-20 17:37] LABS: Reflex Lactate? Y
[2025-02-20] MEDS: PHENYLEPHRINE HCL 40 MG in SODIUM CHLORIDE 0.9% 96 ML IV (17:51)
[2025-02-20] MEDS: CALCIUM GLUCONATE 10% INJ 1 GM/10 ML VIAL IV (17:52)
[2025-02-20] MEDS: DEXTROSE 50%-WATER INJ 50 ML SYRINGE IVP ×2 (18:01)
[2025-02-20] MEDS: INSULIN LISPRO (AdmeLOG) 1 UNIT/0.01 ML UNIT 5 UNIT SC (18:07)
[2025-02-20] MEDS: HYDROCORTISONE SOD SUCC INJ 100 MG 2 ML VIAL 50 MG IV (18:26)
--- NOTE | 2025-02-20 18:29 | ESPR_ITS ---
Documentation for date of: 02/20/25 Subjective Subjective Interval history: Reviewed the latest CT scan of the chest abdomen pelvis No findings of acute abdomen or colitis Patient is on 2 pressors at the moment vasopressin and Levophed Hemodialysis catheter in place Exam Vital Signs Temp Pulse Resp BP Pulse Ox O2 Del Method O2 Flow Rate 96.3 F L 118 H 30 H 127/63 0 L Nasal Cannula 2 02/20/25 17:41 02/20/25 18:15 02/20/25 15:16 02/20/25 18:15 02/20/25 13:30 02/20/25 12:00 02/20/25 12:00 FiO2 85 02/20/25 17:50 Objective Labs 02/20/25 13:50 02/20/25 16:42 Labs: Laboratory Results - last 24 hr 02/19/25 02/19/25 02/20/25 17:30 23:10 03:25 WBC 16.8 H RBC 3.62 L Hgb 8.6 L Hct 29.7 L MCV 82 MCH 23.8 L MCHC 29.0 L RDW Std Deviation 52.0 H Plt Count 268 D Neut % (Auto) 95 H Lymph % (Auto) 2 L [place] % (Auto) 1 Eos % (Auto) 1 Baso % (Auto) 0 Neut # (Auto) 15.9 H Lymph # (Auto) 0.4 L [place] # (Auto) 0.2 Eos # (Auto) 0.2 Baso # (Auto) 0.0 Immature Gran # (Auto) 0.09 H Absolute Nucleated RBC 0.02 H Immature Gran % 1 H Nucleated RBC % 0 Puncture Site ABG pH ABG pCO2 ABG pO2 ABG HCO3 ABG O2 Saturation ABG Base Excess VBG pH VBG pCO2 VBG pO2 VBG O2 Sat (Lelo) VBG Base Excess FiO2 Sodium 139 Potassium 4.9 Chloride 105 Carbon Dioxide 20.2 Anion Gap 14 BUN 28 H Creatinine 3.0 H D Estim Creat Clear Calc 23.6 L eGFR 21 L BUN/Creatinine Ratio 9 L Glucose 79 D Calculated Osmolality 282 Lactic Acid 2.3 H 2.9 H Calcium 8.7 Corrected Calcium 8.9 Phosphorus 3.5 Magnesium 1.8 Iron < 5 L TIBC 180 L Iron Saturation 2 L Unsat Iron Binding 175 L Ferritin 156 Total Bilirubin 0.9 D AST 26 ALT 15 Alkaline Phosphatase 182 H D Troponin I Total Protein 6.4 Albumin 3.7 Globulin 2.7 Albumin/Globulin Ratio 1.4 Blood Type Antibody Screen Crossmatch Blood Bank Wristband ID 02/20/25 02/20/25 02/20/25 07:17 09:28 12:06 WBC 26.3 H D RBC 3.35 L Hgb 7.8 L Hct 28.0 L MCV 84 MCH 23.3 L MCHC 27.9 L RDW Std Deviation 53.8 H Plt Count 267 Neut % (Auto) 83 H Lymph % (Auto) 12 [place] % (Auto) 2 Eos % (Auto) 1 Baso % (Auto) 0 Neut # (Auto) 21.9 H Lymph # (Auto) 3.1 [place] # (Auto) 0.5 Eos # (Auto) 0.3 Baso # (Auto) 0.1 Immature Gran # (Auto) 0.42 H Absolute Nucleated RBC 0.06 H Immature Gran % 2 H Nucleated RBC % 0 Puncture Site ABG pH ABG pCO2 ABG pO2 ABG HCO3 ABG O2 Saturation ABG Base Excess VBG pH 7.34 VBG pCO2 37 VBG pO2 48 VBG O2 Sat (Lelo) 84 L VBG Base Excess -6 L FiO2 Sodium 138 Potassium 5.1 Chloride 106 Carbon Dioxide 12.8 L* Anion Gap 19 H BUN 29 H Creatinine 3.3 H Estim Creat Clear Calc 21.2 L eGFR 19 L BUN/Creatinine Ratio 9 L Glucose 94 Calculated Osmolality 281 Lactic Acid 3.7 H 8.9 H* Calcium 8.6 Corrected Calcium 9.1 Phosphorus 6.4 H Magnesium Iron TIBC Iron Saturation Unsat Iron Binding Ferritin Total Bilirubin 0.7 AST 60 H ALT 33 Alkaline Phosphatase 185 H Troponin I 0.541 H* D Total Protein 5.6 L Albumin 3.4 Globulin 2.2 L Albumin/Globulin Ratio 1.5 Blood Type Antibody Screen Crossmatch Blood Bank Wristband ID 02/20/25 02/20/25 02/20/25 12:55 13:50 14:23 WBC RBC Hgb 6.7 L* Hct 23.8 L MCV MCH MCHC RDW Std Deviation Plt Count Neut % (Auto) Lymph % (Auto) [place] % (Auto) Eos % (Auto) Baso % (Auto) Neut # (Auto) Lymph # (Auto) [place] # (Auto) Eos # (Auto) Baso # (Auto) Immature Gran # (Auto) Absolute Nucleated RBC Immature Gran % Nucleated RBC % Puncture Site Arterial Line Arterial Line ABG pH 6.99 L* 7.07 L* ABG pCO2 46 35 D ABG pO2 156 H 155 H ABG HCO3 11 L 10 L ABG O2 Saturation 98 99 H ABG Base Excess -19 L -19 L VBG pH 7.04 L VBG pCO2 35 L VBG pO2 99 H D VBG O2 Sat (Lelo) 95 L D VBG Base Excess -20 L FiO2 100 100 Sodium Potassium Chloride Carbon Dioxide Anion Gap BUN Creatinine Estim Creat Clear Calc eGFR BUN/Creatinine Ratio Glucose Calculated Osmolality Lactic Acid 18.0 H* Calcium Corrected Calcium Phosphorus Magnesium Iron TIBC Iron Saturation Unsat Iron Binding Ferritin Total Bilirubin AST ALT Alkaline Phosphatase Troponin I 1.378 H* D Total Protein Albumin Globulin Albumin/Globulin Ratio Blood Type Antibody Screen Crossmatch Blood Bank Wristband ID 02/20/25 02/20/25 15:41 16:42 WBC RBC Hgb Hct MCV MCH MCHC RDW Std Deviation Plt Count Neut % (Auto) Lymph % (Auto) [place] % (Auto) Eos % (Auto) Baso % (Auto) Neut # (Auto) Lymph # (Auto) [place] # (Auto) Eos # (Auto) Baso # (Auto) Immature Gran # (Auto) Absolute Nucleated RBC Immature Gran % Nucleated RBC % Puncture Site ABG pH ABG pCO2 ABG pO2 ABG HCO3 ABG O2 Saturation ABG Base Excess VBG pH VBG pCO2 VBG pO2 VBG O2 Sat (Lelo) VBG Base Excess FiO2 Sodium 140 Potassium 6.8 H* D Chloride 103 Carbon Dioxide < 10.0 L* Anion Gap 27 H BUN 34 H Creatinine 3.7 H Estim Creat Clear Calc 18.9 L eGFR 16 L BUN/Creatinine Ratio 9 L Glucose 107 H Calculated Osmolality 287 Lactic Acid 18.0 H* 23.0 H* Calcium 7.9 L Corrected Calcium Phosphorus Magnesium Iron TIBC Iron Saturation Unsat Iron Binding Ferritin Total Bilirubin AST ALT Alkaline Phosphatase Troponin I Total Protein Albumin Globulin Albumin/Globulin Ratio Blood Type A Positive Antibody Screen NEGATIVE Crossmatch See Detail Blood Bank Wristband ID Yes Impressions Impression: No anticipated GI issues in this clinical setting with hypotension No indication for a colonoscopy at this point Will continue to monitor ABG Interpretation ABG results: 02/20/25 02/20/25 02/20/25 07:17 12:55 13:50 ABG pH 6.99 L* 7.07 L* ABG pCO2 46 35 D ABG pO2 156 H 155 H ABG HCO3 11 L 10 L ABG O2 Saturation 98 99 H ABG Base Excess -19 L -19 L VBG pH 7.34 VBG pCO2 37 VBG pO2 48 VBG Base Excess -6 L 02/20/25 14:23 ABG pH ABG pCO2 ABG pO2 ABG HCO3 ABG O2 Saturation ABG Base Excess VBG pH 7.04 L VBG pCO2 35 L VBG pO2 99 H D VBG Base Excess -20 L Assessment & Plan A&P Narrative # Right-sided abdominal pain with leukocytosis and CT scan of the abdomen pelvis showing pericecal inflammatory changes Plan Conservative management with IV antibiotics and a surgical consultation I will follow the patient closely Might need a colonoscopy Other medical problems include Possible UTI because of the CT scan findings of perinephric stranding Leukocytosis New onset cardiac arrhythmias Relative hypotension Thank you very much for the opportunity to participate in the care of this patient Time Spent With Patient Time: Total time spent is greater than 50% in coordination of care (as documented) at patient's floor/unit and/or counseling patient:
[2025-02-20 18:51] LABS: Lactate (Lactic Acid) 21.0 mMol/L (0.4-2.0)
[2025-02-20 18:53] LABS: Base Excess -20 (-3-3); HCO3 9 mEq/L (20-26); Inspired Oxygen, FIO2 85 %; O2 Saturation 97 % (91-98); PCO2 31 mmHg (32.0-48.0); PO2 114 mmHg (83-108)
[2025-02-20 18:54] LABS: Allen Test Not Performed; Puncture Site Arterial Line
[2025-02-20 18:55] LABS: pH, Arterial 7.07 (7.35-7.45)
[2025-02-20] MEDS: Norepinephrine/NS 16mg/250ml 16 MG/250 ML BAG 140.982 MG IV (19:05)
[2025-02-20 19:11] LABS: Albumin, Serum 2.7 gm/dL (3.4-4.8); Anion Gap 28 (7-16); BUN/Creatinine Ratio 10 Ratio (12-20); Blood Urea Nitrogen 29 mg/dL (9-23); Calcium 7.9 mg/dL (8.3-10.6); Calcium (Corrected) 8.9 mg/dL (8.5-10.1); Chloride 101 mMol/L (98-107); Creatinine (Component) 2.9 mg/dL (0.6-1.3); Estimated Creatinine Clearance 24.2 mL/min (>60); Glucose 222 mg/dL (74-106); Osmolality,Calculated 292 (275-295); Phosphorous 8.5 mg/dL (2.4-5.1); Potassium 5.8 mMol/L (3.4-5.1); Sodium 140 mMol/L (136-145); eGFR 22 See Note
[2025-02-20 19:12] LABS: Carbon Dioxide 11.3 mMol/L (20.0-31.0)
[2025-02-20 19:29] LABS: Creatine Kinase 317 U/L (34-171)
[2025-02-20] MEDS: EPINEPHrine in NS 16 MG IVPB 16 MG/250 ML BAG 4.147 MG IV (19:30)
[2025-02-20 19:47] LABS: Reflex Lactate? Y
[2025-02-20 20:12] LABS: Lactic Acid, 3 HR 27.0 mMol/L (0.4-2.0)
[2025-02-20 20:15] LABS: Basophils # (Auto) 0.0 Thou/mm3 (0.0-0.2); Basophils % (Auto) 0 % (0-2.5); Eosinophils # (Auto) 0.0 Thou/mm3 (0.0-0.5); Eosinophils % (Auto) 0 % (0-10); Immature Granulocytes Auto 0.19 Thou/mm3 (0.00-0.00); Lymphocytes # (Auto) 3.3 Thou/mm3 (1.0-4.8); Lymphocytes % (Auto) 19 % (10-50); Mean Corpuscular HGB Conc 28.0 g/dl (31.0-37.0); Mean Corpuscular Hemoglobin 23.4 pg (25.0-35.0); Mean Corpuscular Volume 84 fL (80-100); Monocytes # (Auto) 0.3 Thou/mm3 (0.0-0.8); Monocytes % (Auto) 2 % (0-12); Neutrophils # (Auto) 14.1 Thou/mm3 (1.8-7.7); Neutrophils % (Auto) 78 % (37-80); Nucleated Red Blood Cell # 0.24 Thou/mm3 (0.00-0.00); Nucleated Red Blood Cell % 1 /100 WBC (0); Platelet Count 100 Thou/mm3 (140-440); RDW Standard Deviation 53.3 fL (35.1-43.9); Red Blood Count 2.18 Miln/mm3 (4.50-5.90); White Blood Count 18.0 Thou/mm3 (3.8-10.6)
[2025-02-20] MEDS: Norepinephrine/NS 16mg/250ml 16 MG/250 ML BAG 248.791 MG IV (20:21)
[2025-02-20 20:22] LABS: D-Dimer 2360 ng/mL (<600)
[2025-02-20 20:26] LABS: Strep A Rapid Negative (Negative)
--- NOTE | 2025-02-20 20:33 | PC.NURSE ---
during report pt became unstable 2 amps of bicarb given by Finesse MOODY and bp improved. Shortly after report bp decreased again additonal vasopressor epi was started and vasopressors were emergently titrated to max. dose. HR and BP continued to decline as low as 30s/20s via arterial line. Although pulses were not lost mult. interventions were performed by staff members and a code blue was called due to the severity of vitals. Family was contacted by Dr Brown and updated on pt condition and pt was transitioned to comfort care with family at bedside.
[2025-02-20 20:44] LABS: Hematocrit 18.2 % (41.0-53.0)
--- NOTE | 2025-02-20 20:47 | EVENTNT_ITS ---
Documentation for date of: 02/20/25 Event Note Event Note: This is 75-year-old male with past medical history of hypertension and prostate cancer s/p radiation and chemotherapy was upgraded to the ICU after cardiac arrest coded x3. CT imaging were reviewed via phone call with Dr. Travis, He did not appreciate any bowel ischemia although he saw inflammation around the colonic wall. He stated that he saw gallbladder wall thickening and bilateral extensive dense pneumonia likely related to aspiration. Code Blue CODE HAN called at 19:42 with heart rate 71 on monitor with thready pulse, blood pressure dropped to 35/18 from the art line. Patient was given 1 amp of epinephrine while epinephrine and Levophed + vasopressin drip was running. 1 L bolus of LR was pushed. At 19:43 amp of D50 was also given. At 19:45 patient was given 2 A of sodium bicarbonate, 1 amp of calcium chloride due to peaked T waves. At 19:47 patient's blood pressure was 144/57, heart rate irregular from 90s to 130s in V. tach. Patient went in V. tach therefore amiodarone 300 mg was pushed x 1. At 19:54 2 Amps of sodium bicarb was pushed. From 19:57 to 20:01 blood sugars were persistently low therefore 2 A of D50 were pushed due to blood sugar 82. D10 was started at 150 cc/h. Blood sugars remained 77 therefore another 2 A of D50 were pushed. At 20:03 1 amp of sodium bicarb was given. Patient's blood pressure was 133/51, heart rate 72. Oxygen saturations dropped to 50% while they were doing Ambu bag. At 20:01, blood pressure went down to 111/46. Heart rate 60. Oxygen saturations were not recordable after that. - Family was contacted and informed regarding patient's critical condition. They stated that they will be soon at the hospital and want to continue with medications until they arrive at the bedside and see him. At 20:04, heart rate dropped to 53. 1 amp of epinephrine was given. At 20:05, blood pressure was 130/49, heart rate 60. 1 amp of sodium bicarb was pushed. At 20:10, blood pressure was 93/40, heart rate 52. 1 amp of epinephrine was given. At 20:12 1 amp of calcium chloride was pushed due to peaked T waves. blood sugars were 567. - Labs came up with critical lactic acid 27. Hemoglobin 5.1., White count 18. 0. Platelet count 100. PT 27.3, INR 2.8, APTT 59.5, fibrinogen 141. D-dimer 2360. Rapid strep negative. At 20:15, blood pressure was 90/38, heart rate 46. Rhythm appeared as a block. 1 amp of epinephrine was pushed again. At 20:16, blood pressure was 83/37, heart rate 46. 1 amp of sodium bicarb was pushed. At 20:18, blood pressure was 70/33, heart rate 37. 1 amp of epinephrine and 1 amp of bicarb was given. At 20:21, blood pressure was 81/35, heart rate 44. 1 amp of epinephrine was given At 20:22 Goals of care discussion was performed with the family in the presence of nurses and they were informed that patient went into [facility] with multiorgan failure and despite medications his body is actively declining. Family was understanding and wanted to say final goodbyes before we turn off meds. At 20:23 patient's family arrived at the bedside. Patient's son was also on the phone call with patient's sister and the decided to change the patient to DNR/DNI with comfort care. At 20:33 patient was pronounced with fixed dilated pupil and no pulse. Family including patient's sister her and patient's brother was present at the bedside. Patient's son was on the phone call. Condolences were offered. Case was discussed with software applications developer on phone, Dr. Fady Brown MD PGY-3
[2025-02-20 20:50] LABS: Hemoglobin 5.1 g/dL (13.5-16.0)
[2025-02-20 20:57] LABS: Fibrinogen 141 mg/dL (175-375); INR 2.8 (0.9-1.3); Partial Thromboplastin Time 59.5 Seconds (22.0-36.0); Prothrombin Time 27.3 Seconds (9.0-12.2)
--- NOTE | 2025-02-20 21:41 | PD.IMCONS ---
HPI Data of Consult Requesting Physician: Bora Foy MD Primary Care Provider: Rhea Juares MD Consult Narrative History of present illness: Cardiology was consulted this evening around 6 PM given the elevated troponins. Patient had a cardiac arrest this morning was resuscitated within 5 minutes but later had another 2 episodes of CODE BLUE requiring further resuscitation Patient has been intubated and sedated on mechanical ventilation and is on multiple pressors. Patient admitted with septic shock and now has multiorgan failure with significant elevation of lactate 823 and his last pH was 6.9. Patient has acute kidney injury with hyperkalemia of 6.8 patient was given hyperkalemia cocktail immediately now and patient is planned to start CRRT. Also patient appears to be hypoglycemic to the 40s. Reviewed the initial EKG that shows Q waves in the inferior leads but no significant ST elevation or no evidence of STEMI on presentation. Today's EKG shows the similar finding except for minimal ST changes in lead III only but again there was no evidence of any STEMI. Bedside limited echocardiogram was performed as patient did not have good windows, intubated, mechanical ventilated and showed normal LV function with trace pericardial effusion and RV appears to be dilated with reduced function and ordered a complete echocardiogram. Overall prognosis appears to be critically ill and overall prognosis appears to be very poor given the pH of 6.9 along with a elevated lactate of 23 including hypoglycemia in the 40s along with significant hypoxemia. Full note to follow. cc:: cc: Bora Foy MD Meds Home Medications and Allergies Home Medications ?Medication ?Instructions ?Recorded ?Confirmed ?Type benazepril 10 mg tablet 10 mg PO QDAY 04/16/22 02/19/25 History solco hc PO 1XD Hypertension 02/19/25 History Allergies Allergy/AdvReac Type Severity Reaction Status Date / Time No Known Allergies Allergy Verified 02/19/25 08:48 Exam Vital Signs Temp Pulse Resp BP Pulse Ox O2 Del Method O2 Flow Rate 96.3 F L 0 L 30 H 79/35 L 74 L Nasal Cannula 3 02/20/25 17:41 02/20/25 21:00 02/20/25 15:16 02/20/25 20:21 02/20/25 19:45 02/20/25 12:00 02/20/25 14:00 FiO2 85 02/20/25 17:50 Results Labs 02/20/25 19:55 02/20/25 18:29 Labs: Short CBC 02/20/25 02/20/25 02/20/25 Range/Units 03:25 12:06 13:50 WBC 16.8 H 26.3 H D (3.8-10.6) Thou/mm3 Hgb 8.6 L 7.8 L 6.7 L* (13.5-16.0) g/dL Hct 29.7 L 28.0 L 23.8 L (41.0-53.0) % Plt Count 268 D 267 (140-440) Thou/mm3 02/20/25 02/20/25 02/20/25 Range/Units 19:55 19:55 19:55 WBC 18.0 H D (3.8-10.6) Thou/mm3 Hgb Cancelled 5.1 L* D (13.5-16.0) g/dL Hct Cancelled 18.2 L* (41.0-53.0) % Plt Count 100 L D (140-440) Thou/mm3 [facility] 02/20/25 02/20/25 02/20/25 03:25 12:06 16:42 Sodium 139 138 140 Potassium 4.9 5.1 6.8 H* D Chloride 105 106 103 Carbon Dioxide 20.2 12.8 L* < 10.0 L* BUN 28 H 29 H 34 H Creatinine 3.0 H D 3.3 H 3.7 H Glucose 79 D 94 107 H Calcium 8.7 8.6 7.9 L 02/20/25 18:29 Sodium 140 Potassium 5.8 H D Chloride 101 Carbon Dioxide 11.3 L* BUN 29 H Creatinine 2.9 H D Glucose 222 H D Calcium 7.9 L Cardiac Enzymes 02/20/25 02/20/25 02/20/25 Range/Units 12:06 14:23 18:36 Total Creatine Kinase 317 H (34-171) U/L Troponin I 0.541 H* D 1.378 H* D (0.0-0.045) ng/mL Liver Function 02/20/25 02/20/25 02/20/25 Range/Units 03:25 12:06 18:29 Total Bilirubin 0.9 D 0.7 (0.3-1.2) mg/dL AST 26 60 H (0-34) U/L ALT 15 33 (10-49) U/L Alkaline Phosphatase 182 H D 185 H (46-116) U/L Albumin 3.7 3.4 2.7 L D (3.4-4.8) gm/dL ABG Interpretation ABG results: 02/20/25 02/20/25 02/20/25 07:17 12:55 13:50 ABG pH 6.99 L* 7.07 L* ABG pCO2 46 35 D ABG pO2 156 H 155 H ABG HCO3 11 L 10 L ABG O2 Saturation 98 99 H ABG Base Excess -19 L -19 L VBG pH 7.34 VBG pCO2 37 VBG pO2 48 VBG Base Excess -6 L 02/20/25 02/20/25 14:23 18:40 ABG pH 7.07 L* ABG pCO2 31 L ABG pO2 114 H D ABG HCO3 9 L* ABG O2 Saturation 97 ABG Base Excess -20 L VBG pH 7.04 L VBG pCO2 35 L VBG pO2 99 H D VBG Base Excess -20 L
[2025-02-20 21:45] LABS: Reflex Lactate? Y
--- NOTE | 2025-02-20 22:04 | PD.DPN ---
Documentation for date of: 02/20/25 Pronouncement Note Date and Time of Date of : 02/20/25 Time of : 20:33 PCOD Preliminary cause of : Cardiopulmonary arrest Summary Additional details: At 20:22 Goals of care discussion was performed with the family in the presence of nurses and they were informed that patient went into DIC with multiorgan failure and despite medications his body is actively declining. Family was understanding and wanted to say final goodbyes before we turn off meds. At 20:23 patient's family arrived at the bedside. Patient's son was also on the phone call with patient's sister and the decided to change the patient to DNR/DNI with comfort care. At 20:30 RN informed me to pronounce patient. On exam, no heart or breath sounds were noted after one minute of auscultation. Pupils were fixed and dilated without corneal reflex. Patient was pronounced on 02/20/2025 at 20:33. Children[facility] Program Coordinator, was notified. Family was present and condolences were offered. Case disclosed with Dr. Fady Brown MD PGY-3 Additional Data Confirmation of : no pulse, no respirations, no heart sounds and pupils fixed and dilated Family: at bedside Attending/PCP notified?: No Attending physician: Bora Foy MD Was code activated?: Yes Autopsy requested?: No
--- NOTE | 2025-02-21 08:13 | DES_ITS ---
Documentation for date of: 02/21/25 Summary Date and Time Date of admission: 02/19/25 16:00 Date of : 02/20/25 Time of : 20:33 Summary Hospital Course: 75-year-old male with past medical history of hypertension and prostate cancer s/p radiation and chemotherapy was admitted to the medical floors on 10/19/2024 due to MIGUEL as well as pericecal inflammation with concern for appendicitis and perinephric stranding. Initially patient came in afebrile and normotensive. Initial labs were relevant for leukocytosis, low hemoglobin, and MIGUEL as well as lactic acidosis. Initial imaging included chest x-ray which showed no pneumonia or pulmonary edema, abdominal ultrasound that showed a normal gallbladder, but hepatomegaly; and abdomen CT that show perinephric stranding with renal scar summation as well as multiple pulmonary nodules on bilateral lower lungs and also it was seen that patient had pericecal inflammatory changes which could have been appendicitis. Patient was placed on IV fluids as well as Zosyn initially. Patient was also placed on GoLytely and clear liquid diets given that patient was seen by surgery and there was low suspicion for appendicitis. He did spike some fevers overnight on 02/19/2025 as high as 103.2. In the morning of 02/20/2025 patient had a rapid response called due to hypotension at this time patient received 2.5 L of IV fluids and repeat lactate was ordered and repeat lactic was uptrending, but patient was still AO x 3 at this time. It was also noted in the morning patient had worsening kidney function and decreased urine output. Primary team also stated that his abdomen did look more distended than yesterday therefore a CT abdomen was also ordered at this time. Around noon time during reassessment of the patient at bedside patient was having worsening pain and not being able to comply with commands or following directions or responding to questions. He had a feeling of imminent at this time and patient sister was at bedside stated that he was not articulate for the past 2 hours. Patient afterwards proceeded to have bluish discoloration of his lips with O2 saturations going down to the 80s even on 15 L of nasal cannula and subsequently patient went into cardiac arrest and no pulses were present therefore CODE BLUE was called. ROSC was achieved shortly after CPR was started after 5 to 8 minutes of CPR. Patient was intubated at this time to protect his airway and given desaturations and given worsening bluish discoloration on physical exam. Patient was then transferred to the ICU for further care.In the ICU patient had another code blue, but got ROSC with an 3 to 5 minutes again. In the afternoon his lactic acid also up trended to 23 even after fluid resucitation and vasopressors, his hemoglobin did drop to 6.7 subsequently. Patient also had a CTA of chest abdomen pelvis with did not show any aortic dissection or any PEs. Given the worsening acidosis as well as lactic acidosis patient was decided to be placed on Tablo for which consenting was done by sisters of the patient and hemodialysis catheter was placed on the left IJ. Patient has also been requiring increased vasopressor support with phenylephrine, Levophed, and vasopressin as well as steroids. Cardiology was also consulted due to increased troponins as well as some ST elevation in lead III and V3, but without any reciprocal ST depressions. Patient's repeat labs showed worsening acidosis as well as hyperkalemia and patient was requiring q45- minute sodium bicarb pushes as well as increased vasopressor support and was already on 4 vasopressors and steroids by later on the evening. Patient's Hgb downtrended to 5.1, initial decrease could have been in setting of hemodilution and second dropped could have been in the setting of DIC 2/2 shock. Patient again had a CODE BLUE called that 19:42 and at this time after the code had been running up to 20:21 ICU resident overnight had goals of care discussion with the family at bedside giving multiorgan failure and at 20:23 patient's family decided to change the patient to DNR/DNI and proceed with comfort care. At 20: 33 patient was pronounced . Case disclosed with Attending Dr. Fady Hopkins PGY2 Disclaimer: Even though this this note was dictated by speech recognition and even though it was carefully revised there may still be minor errors in swing tender due to voice recognition software. Additional Data Confirmation of as documented by pronouncing clinician: no pulse, no respirations, no heart sounds and pupils fixed and dilated Family: at bedside Attending physician: Bora Foy MD Was code activated?: Yes Autopsy requested?: Yes Visit Providers Provider Primary care physician: Rhea Juares MD Consults: 02/19/25 16:07 Consult to Gastroenterology Routine Comment: Colonoscopy per General Surgery Consulting Provider: Jam Prieto 02/19/25 16:08 Consult to General Surgery Stat Comment: Possible Appendicitis Consulting Provider: Miranda Singer 02/20/25 08:18 Consult to Automatic Pinsetter [employer]ic Stat Comment: Hypotension Consulting Provider: Lana Shrestha 02/20/25 14:44 Consult to Nephrology Stat Comment: Consulting Provider: Kaylyn Aguila 02/20/25 17:20 Consult to Cardiology Routine Comment: Consulting Provider: Bienvenido Rodrigues Discharge Plan Plan Patient Disposition: Prescriptions/Referrals Referrals: Rhea Juares MD [Primary Care Provider, Family Practice] Patient/Caregiver Discharge Instructions Print Language: Kyrgyz Discharge Order Discharge Orders: Discharge (Routine); Ordered 02/20/25 Ordered By: Rafael Brown
== END 2025-02-20 20:33 | disposition expired | DRG 871 ==
LOC: SERX 16:00 → SERHOLD 16:11 → S2NX 21:06 → S2SX 02-20 12:08
PROVIDERS: Internal Medicine; Nurse Practitioner Family; Student in an Organized Health Care Education/Training Program; Admitting Provider Internal Medicine; Emergency Provider Emergency Medicine; PCP Family Medicine; Visit Provider Internal Medicine
DX: A41.9 Sepsis, unspecified organism (principal); D65 Disseminated intravascular coagulation [defibrination syndrome]; J18.9 Pneumonia, unspecified organism; J96.01 Acute respiratory failure with hypoxia; R65.21 Severe sepsis with septic shock; N17.9 Acute kidney failure, unspecified; E87.4 Mixed disorder of acid-base balance; G93.40 Encephalopathy, unspecified; I47.20 Ventricular tachycardia, unspecified; K82.8 Other specified diseases of gallbladder; E87.5 Hyperkalemia; I48.91 Unspecified atrial fibrillation; C61 Malignant neoplasm of prostate; I12.9 Hypertensive chronic kidney disease with stage 1 through stage 4 chronic kidney disease, or unspecified chronic kidney disease; N18.9 Chronic kidney disease, unspecified; D50.9 Iron deficiency anemia, unspecified; Z51.5 Encounter for palliative care; I46.8 Cardiac arrest due to other underlying condition; Z66 Do not resuscitate; Z85.46 Personal history of malignant neoplasm of prostate; Z92.21 Personal history of antineoplastic chemotherapy; Z92.3 Personal history of irradiation
CPT/HCPCS: 36415; 36600; 71045; 71275; 74018; 74174; 74176; 76705; 80048; 80053; 80069; 81001; 82550; 82728; 82803; 83540; 83550; 83605; 83690; 83735; 83880; 84100; 84439; 84443; 84484; 85007; 85014; 85018; 85025; 85027; 85379; 85384; 85610; 85730; 86850; 86900; 86901; 86923; 87040; 87086; 87205; 87502; 87651; 87811; 93005; 94002; 94003; 94640; A4649; A9270; J0131; J0168; J0171; J0282; J0461; J0612; J0696; J1644; J1720; J1815; J2250; J2270; J2371; J2405; J2470; J2543; J2598; J3373; J3374; J3490; J7050; J7120; J7999; Q9967